=== PATIENT | female | born 1985 | race African-American/Black ===

== ENCOUNTER 2017-05-21 12:11 | Emergency (ER) | payer MEDICAID ==
--- NOTE | 2017-05-21 12:40 | ER Document Report ---
ED Medical Screen (RME) - General Chief Complaint: Vaginal Discharge Stated Complaint: VAGINAL DISCHARGE Time Seen by Provider: 05/21/17 12:34 Notes: 31-year-old patient who is whose last menstrual period was 4 weeks ago and is due now. She reports a one-week history of a clear watery slimy vaginal discharge, a 3 day history of sore throat, and feels dehydrated. I have greeted and performed a rapid initial assessment of this patient. A comprehensive ED assessment and evaluation of the patient, analysis of test results and completion of the medical decision making process will be conducted by additional ED providers. TRAVEL OUTSIDE OF THE [place] IN LAST 30 DAYS: No - Related Data Allergies/Adverse Reactions: No Known Allergies Allergy (Verified 05/21/17 12:16) Past Medical History - General Last Menstrual Period: 1 month ago - Social History Chew tobacco use (# tins/day): No Frequency of alcohol use: None Drug Abuse: None - Past Medical History Cardiac Medical History: Reports: Hx Hypertension Pulmonary Medical History: Reports: Hx Sleep Apnea Neurological Medical History: Reports: Hx Migraine. Denies: Hx Seizures Endocrine Medical History: Denies: Hx Hyperthyroidism, Hx Hypothyroidism Renal/ Medical History: Reports: Hx Ovarian Cysts. Denies: Hx Kidney Stones, Hx Peritoneal Dialysis, Hx Pelvic Inflammatory Disease Malignancy Medical History: Denies: Hx Breast Cancer, Hx Cervical Cancer, Hx Ovarian Cancer GI Medical History: Reports: Hx Gastroesophageal Reflux Disease. Denies: Hx Hiatal Hernia, Hx Ulcer Musculoskeltal Medical History: Denies Hx Fibromyalgia Traumatic Medical History: Denies: Hx Fractures Past Surgical History: Reports: Hx Section - x4 sec, Hx Cholecystectomy. Denies: Hx Hysterectomy, Hx Pacemaker - Immunizations Hx Diphtheria, Pertussis, Tetanus Vaccination: Yes Physical Exam - Vital signs Vitals: Temp Pulse Resp BP Pulse Ox 98.5 F 110 H 18 149/105 H 98 05/21/17 12:16 05/21/17 12:16 05/21/17 12:05/21/17 12:05/21/17 12:16 Course - Vital Signs Vital signs: Temp Pulse Resp BP Pulse Ox 98.5 F 110 H 18 149/105 H 98 05/21/17 12:16 05/21/17 12:16 05/21/17 12:16 05/21/17 12:16 05/21/17 12:16
[2017-05-21 14:32] LABS: CHLAM PCR NOT DETECTED (NOT DETECT)
--- NOTE | 2017-05-21 14:32 | ER Document Report ---
ED General - General Chief Complaint: Vaginal Discharge Stated Complaint: VAGINAL DISCHARGE Time Seen by Provider: 05/21/17 12:34 Notes: 31-year-old patient who is whose last menstrual period was 4 weeks ago and is due now. She reports a one-week history of a clear watery slimy vaginal discharge, a 3 day history of sore throat, and feels dehydrated. pt does admit to unprotected sex 3-4 days ago. no fever, no urinary symptoms, no abdominal pain TRAVEL OUTSIDE OF THE [place] IN LAST 30 DAYS: No - HPI Onset: Last week Onset/Duration: Gradual Quality of pain: Achy Associated symptoms: Allergy/hay fever, Sinus pain/drainage - + post nasal drip. denies: Nonproductive cough, Productive cough, Headache, Hurts to breath , Nausea Exacerbated by: Denies Relieved by: Denies Similar symptoms previously: Yes Recently seen / treated by doctor: No - Related Data Allergies/Adverse Reactions: No Known Allergies Allergy (Verified 05/21/17 12:16) Past Medical History - General Information source: Patient Last Menstrual Period: 1 month ago - Social History Smoking Status: Never Smoker Chew tobacco use (# tins/day): No Frequency of alcohol use: None Drug Abuse: None Lives with: Family Family History: Reviewed & Not Pertinent - Past Medical History Cardiac Medical History: Reports: Hx Hypertension Pulmonary Medical History: Reports: Hx Sleep Apnea Neurological Medical History: Reports: Hx Migraine. Denies: Hx Seizures Endocrine Medical History: Denies: Hx Hyperthyroidism, Hx Hypothyroidism Renal/ Medical History: Reports: Hx Ovarian Cysts. Denies: Hx Kidney Stones, Hx Peritoneal Dialysis, Hx Pelvic Inflammatory Disease Malignancy Medical History: Denies: Hx Breast Cancer, Hx Cervical Cancer, Hx Ovarian Cancer GI Medical History: Reports: Hx Gastroesophageal Reflux Disease. Denies: Hx Hiatal Hernia, Hx Ulcer Musculoskeltal Medical History: Denies Hx Fibromyalgia Traumatic Medical History: Denies: Hx Fractures Past Surgical History: Reports: Hx Section - x4 sec, Hx Cholecystectomy. Denies: Hx Hysterectomy, Hx Pacemaker - Immunizations Hx Diphtheria, Pertussis, Tetanus Vaccination: Yes Review of Systems - Review of Systems Constitutional: No symptoms reported EENT: See HPI Cardiovascular: No symptoms reported Respiratory: No symptoms reported Gastrointestinal: No symptoms reported Genitourinary: See HPI Female Genitourinary: See HPI Musculoskeletal: No symptoms reported Skin: No symptoms reported Hematologic/Lymphatic: No symptoms reported Neurological/Psychological: No symptoms reported Physical Exam - Vital signs Vitals: Temp Pulse Resp BP Pulse Ox 98.5 F 110 H 18 149/105 H 98 05/21/17 12:16 05/21/17 12:16 05/21/17 12:16 05/21/17 12:16 05/21/17 12:16 Interpretation: Normal - General General appearance: Appears well, Alert - HEENT Head: Normocephalic, Atraumatic Eyes: Normal Conjunctiva: Normal Extraocular movements intact: Yes Pupils: PERRL Tympanic membrane: Normal Sinus: Maxillary - mild tenderness Mucous membranes: Moist Pharynx: Post nasal drainage. No: Erythema, Exudate, Retropharyngeal abscess, Tonsillar hypertrophy, Uvular edema, Potential airway comprom. Neck: Normal, Supple - Respiratory Respiratory status: No respiratory distress Chest status: Nontender Breath sounds: Normal Chest palpation: Normal - Cardiovascular Rhythm: Regular Heart sounds: Normal auscultation Murmur: No - Abdominal Inspection: Normal Distension: No distension Bowel sounds: Normal Tenderness: Nontender Organomegaly: No organomegaly - Back Back: Normal, Nontender - Extremities General upper extremity: Normal inspection, Nontender, Normal color, Normal ROM , Normal temperature General lower extremity: Normal inspection, Nontender, Normal color, Normal ROM , Normal temperature, Normal weight bearing. No: Carmine's sign - Neurological Neuro grossly intact: Yes Cognition: Normal Orientation: AAOx4 [place] Coma Scale Eye Opening: Spontaneous Twyla Coma Scale Verbal: Oriented Twyla Coma Scale Motor: Obeys Commands [place] Coma Scale Total: 15 Speech: Normal Motor strength normal: LUE, RUE, LLE, RLE Sensory: Normal - Psychological Associated symptoms: Normal affect, Normal mood - Skin Skin Temperature: Warm Skin Moisture: Dry Skin Color: Normal Course - Re-evaluation Re-evalutation: 05/21/17 14:28 pt has hx/o HTN. has not taken meds today. denies any headache, chest pain or shortness of breath pt's throat appears normal without tonsillar hypertrophy or exudate. no airway compromise or s/s ludwigs or peritonsillary abscess. throat discomfort most likely caused by post nasal drip. - Vital Signs Vital signs: Temp Pulse Resp BP Pulse Ox 98.5 F 110 H 18 149/105 H 98 05/21/17 12:16 05/21/17 12:16 05/21/17 12:16 05/21/17 12:16 05/21/17 12:16 Discharge - Discharge Clinical Impression: Sore throat, Vaginal discharge HTN (hypertension) Qualifiers: Hypertension type: essential hypertension Qualified Code(s): I10 - Essential ( primary) hypertension Condition: Stable Disposition: HOME, SELF-CARE Instructions: Sore Throat ([facility]) Additional Instructions: Your rapid strep is negative for strep today a throat culture is pending. if any further treatment is needed I recommend lozenges and salt water gargles for discomfort your labs for gonorrhea, chlamydia are pending. I will call you with those results and treat accordingly Your blood pressure is elevated today. Please take your medications as prescribed by Dr Bardales Follow up with Dr Bardales for further evaluation and treatment Forms: Elevated Blood Pressure Referrals: SMITA BARDALES MD [Primary Care Provider] - Follow up as needed
[2017-05-21 14:43] VITALS: BP 131/78
== END 2017-05-21 14:43 | disposition home or self-care (01) ==
LOC: ER 12:11
DX: J02.9 Acute pharyngitis, unspecified (principal); N89.8 Other specified noninflammatory disorders of vagina; I10 Essential (primary) hypertension; Z90.49 Acquired absence of other specified parts of digestive tract
CPT/HCPCS: 81025; 87070; 87210; 87491; 87591; 87880; 99283

== ENCOUNTER 2017-09-01 22:39 | Emergency (ER) | payer OTHER, MEDICAID ==
[2017-09-01] MEDS ORDERED: KETOROLAC TROMETHAMINE 10 MG TABLET PO ONE (23:25)
[2017-09-01] MEDS ORDERED: KETOROLAC TROMETHAMINE 10 MG TABLET ONE (23:40)
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
[2017-09-02 01:14] VITALS: BP 111/61
== END 2017-09-02 00:52 | disposition home or self-care (01) ==
LOC: ER 22:39
DX: S16.1XXA Strain of muscle, fascia and tendon at neck level, initial encounter (principal); V49.00XA Driver injured in collision with unspecified motor vehicles in nontraffic accident, initial encounter; R51 Headache; M25.551 Pain in right hip; I10 Essential (primary) hypertension
CPT/HCPCS: 99283; 72125; J3490

== ENCOUNTER → 2017-09-21 | Outpatient (CLI) | payer MEDICAID | LOC: OD 16:18 | PROVIDERS: ATTEND Specialist | DX: G43.909 Migraine, unspecified, not intractable, without status migrainosus (principal); G47.33 Obstructive sleep apnea (adult) (pediatric) | CPT/HCPCS: 36415; 83655 ==

== ENCOUNTER 2017-10-11 08:56 | Emergency (ER) | payer MEDICAID ==
[2017-10-11 10:35] LABS: ABSOLUTE EOSINOPHILS # (AUTO) 0.1 10^3/uL (0.0-0.6); ABSOLUTE MONOCYTES (AUTO) 0.4 10^3/uL (0.1-1.4); ABSOLUTE NEUT (AUTO) 4.2 10^3/uL (1.7-8.2); BASOPHILS % (AUTO) 0.2 % (0-2); HEMATOCRIT 34.5 % (36.0-47.0); HEMOGLOBIN 11.4 g/dL (12.0-15.5); LYMPHOCYTES % (AUTO) 39.4 % (13-45); MEAN CORPUSCULAR HEMOGLOBIN 26.5 pg (27.0-33.4); MEAN CORPUSCULAR HGB CONC 32.9 g/dL (32.0-36.0); MEAN CORPUSCULAR VOLUME 81 fl (80-97); MONOCYTES % (AUTO) 4.8 % (3-13); PLATELET COUNT 334 10^3/uL (150-450); RED BLOOD COUNT 4.28 10^6/uL (3.72-5.28); SEGMENTED NEUTROPHILS % (AUTO) 54.6 % (42-78); TOTAL CELLS COUNTED % (AUTO) 100 %; WHITE BLOOD COUNT 7.6 10^3/uL (4.0-10.5)
[2017-10-11 10:55] LABS: ANION GAP 10 (5-19); BLOOD UREA NITROGEN 6 mg/dL (7-20); CALCIUM 9.6 mg/dL (8.4-10.2); CARBON DIOXIDE 23 mmol/L (22-30); CHLORIDE 109 mmol/L (98-107); GLUCOSE 119 mg/dL (75-110); POTASSIUM 4.5 mmol/L (3.6-5.0); SODIUM 142.2 mmol/L (137-145)
[2017-10-11] MEDS ORDERED: CEFTRIAXONE INJ 250 MG VIAL IM ONE (11:08)
[2017-10-11] MEDS ORDERED: AZITHROMYCIN 1 GM SUSP PACKET PO ONE (11:08)
[2017-10-11] MEDS ORDERED: LIDOCAINE 1% INJ-PF (10 MG/ML) 30 ML SDV INFIL ONE (11:08)
[2017-10-11] MEDS ORDERED: METRONIDAZOLE 500 MG TABLET PO ONE (11:08)
[2017-10-11 11:13] LABS: APPEARANCE,URINE CLOUDY; BILIRUBIN,URINE NEGATIVE (NEGATIVE); GLUCOSE, URINE NEGATIVE (NEGATIVE); KETONES,URINE NEGATIVE (NEGATIVE); LEUKOCYTE ESTERASE,URINE NEGATIVE (NEGATIVE); NITRITE,URINE NEGATIVE (NEGATIVE); PROTEIN,URINE 100 mg/dL (NEGATIVE); URINE SPECIFIC GRAVITY 1.026; UROBILINOGEN,URINE NEGATIVE mg/dL (<2.0)
[2017-10-11 11:14] LABS: COLOR,URINE AMBER
--- NOTE | 2017-10-11 12:20 | ER Document Report ---
ED General - General Chief Complaint: Vaginal Bleeding Stated Complaint: VAGINAL BLEEDING Time Seen by Provider: 10/11/17 09:57 TRAVEL OUTSIDE OF THE [place] IN LAST 30 DAYS: No - HPI Patient complains to provider of: Vaginal bleeding vaginal itching Notes: Patient coming in for vaginal bleeding vaginal itching. Patient took Plan B approximately 2-3 days ago now skin having vaginal itching. Patient was recently seen by a provider and was given Diflucan which she took yesterday for vaginal itching for a yeast infection. Patient is concerned she may have something else going on. Patient denies any fevers chills nausea vomiting diarrhea abdominal pain. Patient resting comfortably upon my evaluation. - Related Data Allergies/Adverse Reactions: No Known Allergies Allergy (Verified 10/11/17 08:59) Past Medical History - Social History Smoking Status: Never Smoker Frequency of alcohol use: None Drug Abuse: None Family History: Reviewed & Not Pertinent Patient has suicidal ideation: No Patient has homicidal ideation: No - Past Medical History Cardiac Medical History: Reports: Hx Hypertension Pulmonary Medical History: Reports: Hx Sleep Apnea Neurological Medical History: Reports: Hx Migraine. Denies: Hx Seizures Endocrine Medical History: Denies: Hx Hyperthyroidism, Hx Hypothyroidism Renal/ Medical History: Reports: Hx Ovarian Cysts. Denies: Hx Kidney Stones, Hx Peritoneal Dialysis, Hx Pelvic Inflammatory Disease Malignancy Medical History: Denies: Hx Breast Cancer, Hx Cervical Cancer, Hx Ovarian Cancer GI Medical History: Reports: Hx Gastroesophageal Reflux Disease. Denies: Hx Hiatal Hernia, Hx Ulcer Musculoskeltal Medical History: Denies Hx Fibromyalgia Traumatic Medical History: Denies: Hx Fractures Past Surgical History: Reports: Hx Section - x4 sec, Hx Cholecystectomy. Denies: Hx Hysterectomy, Hx Pacemaker - Immunizations Hx Diphtheria, Pertussis, Tetanus Vaccination: Yes Review of Systems - Review of Systems Constitutional: No symptoms reported EENT: No symptoms reported Cardiovascular: No symptoms reported Respiratory: No symptoms reported Gastrointestinal: No symptoms reported Genitourinary: No symptoms reported Female Genitourinary: Vaginal bleeding Musculoskeletal: No symptoms reported Skin: No symptoms reported Hematologic/Lymphatic: No symptoms reported Neurological/Psychological: No symptoms reported -: Yes All other systems reviewed and negative Physical Exam - Vital signs Vitals: Temp Pulse Resp BP Pulse Ox 98.9 F 82 20 147/87 H 100 10/11/17 09:16 10/11/17 09:16 10/11/17 09:16 10/11/17 09:16 10/11/17 09:16 Interpretation: Normal - General General appearance: Appears well, Alert - HEENT Head: Normocephalic, Atraumatic Eyes: Normal Pupils: PERRL - Respiratory Respiratory status: No respiratory distress Chest status: Nontender Breath sounds: Normal Chest palpation: Normal - Cardiovascular Rhythm: Regular Heart sounds: Normal auscultation Murmur: No - Abdominal Inspection: Normal Distension: No distension Bowel sounds: Normal Tenderness: Nontender Organomegaly: No organomegaly - Back Back: Normal, Nontender - Extremities General upper extremity: Normal inspection, Nontender, Normal color, Normal ROM , Normal temperature General lower extremity: Normal inspection, Nontender, Normal color, Normal ROM , Normal temperature, Normal weight bearing. No: Carmine's sign - Neurological Neuro grossly intact: Yes Cognition: Normal Orientation: AAOx4 Twyla Coma Scale Eye Opening: Spontaneous [place] Coma Scale Verbal: Oriented Twyla Coma Scale Motor: Obeys Commands Twyla Coma Scale Total: 15 Speech: Normal Motor strength normal: LUE, RUE, LLE, RLE Sensory: Normal - Psychological Associated symptoms: Normal affect, Normal mood - Skin Skin Temperature: Warm Skin Moisture: Dry Skin Color: Normal Course - Re-evaluation Re-evalutation: 10/11/17 16:02 Patient patient did offer treatment for gonorrhea chlamydia Trichomonas and BV in the form of Rocephin and Zithromax and Flagyl. Patient did agree to this. Patient was encouraged follow-up with her primary care provider return to the ER symptoms worsen - Vital Signs Vital signs: Temp Pulse Resp BP Pulse Ox 98.8 F 71 14 113/57 L 100 10/11/17 12:39 10/11/17 12:39 10/11/17 12:39 10/11/17 12:39 10/11/17 12:39 - Laboratory Result Diagrams: 10/11/17 10:13 10/11/17 10:13 Laboratory results interpreted by me: 10/11/17 10/11/17 10/11/17 09:49 10:13 10:13 Hgb 11.4 L Hct 34.5 L MCH 26.5 L RDW 16.0 H Chloride 109 H BUN 6 L Glucose 119 H Urine Protein 100 H Urine Blood LARGE H Urine Ascorbic Acid 40 H Discharge - Discharge Clinical Impression: Vaginal bleeding Disposition: HOME, SELF-CARE Instructions: Vaginal Bleeding ([facility]) Additional Instructions: Your laboratory studies not reveal any critical pathology today. More likely her vaginal bleeding is due to taking the Plan B. He had declined a pelvic exam today. The medications that she received here Rocephin and Zithromax Flagyl will treat gonorrhea chlamydia Trichomonas and bacterial vaginosis. I highly recommend following up with your primary care physician return to ER symptoms worsen. Forms: Return to Work
[2017-10-11 12:41] VITALS: BP 113/57
== END 2017-10-11 12:41 | disposition home or self-care (01) ==
LOC: ER 08:56
DX: N93.9 Abnormal uterine and vaginal bleeding, unspecified (principal); Z79.899 Other long term (current) drug therapy
CPT/HCPCS: 99283; 96372; 36415; 84702; 85025; 80048; 81001; J3490 ×2; Q0144; J0696

== ENCOUNTER 2017-12-31 21:09 | Emergency (ER) | payer MEDICAID ==
--- NOTE | 2017-12-31 22:29 | ER Document Report ---
ED General - General Chief Complaint: Urinary Frequency Stated Complaint: URINARY FREQUENCY Time Seen by Provider: 12/31/17 22:15 Notes: Patient presents with 3 days of urinary frequency and bilateral lower back pain. Denies any recent nausea vomiting diarrhea. She states that she is concerned she may also be . She states her last menstrual period was the eighth of this month. She denies any dysuria or foul-smelling urine or vaginal discharge. She denies any cough or congestion. She states that she thinks she was running a fever prior to coming to the emergency department but she is afebrile in the emergency department. TRAVEL OUTSIDE OF THE [place] IN LAST 30 DAYS: No - Related Data Allergies/Adverse Reactions: No Known Allergies Allergy (Verified 12/31/17 21:28) Past Medical History - Social History Smoking Status: Unknown if Ever Smoked Family History: Reviewed & Not Pertinent Patient has suicidal ideation: No Patient has homicidal ideation: No - Past Medical History Cardiac Medical History: Reports: Hx Hypertension Pulmonary Medical History: Reports: Hx Sleep Apnea Neurological Medical History: Reports: Hx Migraine. Denies: Hx Seizures Endocrine Medical History: Denies: Hx Hyperthyroidism, Hx Hypothyroidism Renal/ Medical History: Reports: Hx Ovarian Cysts. Denies: Hx Kidney Stones, Hx Peritoneal Dialysis, Hx Pelvic Inflammatory Disease Malignancy Medical History: Denies: Hx Breast Cancer, Hx Cervical Cancer, Hx Ovarian Cancer GI Medical History: Reports: Hx Gastroesophageal Reflux Disease. Denies: Hx Hiatal Hernia, Hx Ulcer Musculoskeltal Medical History: Denies Hx Fibromyalgia Traumatic Medical History: Denies: Hx Fractures Past Surgical History: Reports: Hx Section - x4 sec, Hx Cholecystectomy. Denies: Hx Hysterectomy, Hx Pacemaker - Immunizations Hx Diphtheria, Pertussis, Tetanus Vaccination: Yes Review of Systems - Review of Systems Constitutional: No symptoms reported EENT: No symptoms reported Cardiovascular: No symptoms reported Respiratory: No symptoms reported Gastrointestinal: No symptoms reported Genitourinary: No symptoms reported, See HPI, Flank pain, Urgency Female Genitourinary: No symptoms reported Musculoskeletal: No symptoms reported Skin: No symptoms reported Hematologic/Lymphatic: No symptoms reported Neurological/Psychological: No symptoms reported Physical Exam - Vital signs Vitals: Temp Pulse Resp BP Pulse Ox 98.9 F 91 16 136/80 H 100 12/31/17 21:53 12/31/17 21:53 12/31/17 21:53 12/31/17 21:53 12/31/17 21:53 - General General appearance: Appears well, Alert - HEENT Head: Normocephalic, Atraumatic - Respiratory Respiratory status: No respiratory distress - Cardiovascular Rhythm: Regular Heart sounds: Normal auscultation Murmur: No - Abdominal Inspection: Normal Distension: No distension - Back Back: Normal, Nontender. No: CVA tenderness - Neurological Cognition: Normal - Psychological Associated symptoms: Normal affect Course - Re-evaluation Re-evalutation: 12/31/17 23:30 Patient's urine shows no signs of infection and test is negative. Patient afebrile with normal vitals in the emergency department. Discussed findings with patient. Advised to stay well-hydrated as this could cause her symptoms. Discussed if she develops a fever greater than 100.5 for more than 4 hours with worsening pain or symptoms to return for reevaluation. - Vital Signs Vital signs: Temp Pulse Resp BP Pulse Ox 98.7 F 74 17 134/76 H 100 12/31/17 23:51 12/31/17 23:51 12/31/17 23:51 12/31/17 23:51 12/31/17 23:51 Discharge - Discharge Clinical Impression: Urinary urgency Condition: Good Disposition: HOME, SELF-CARE Additional Instructions: Please take medications as prescribed and please try to drink 5-6 glasses of water daily. Please seek medical attention if symptoms are worsening for any other concerns. Prescriptions: Phenazopyridine HCl [Pyridium 200 mg Tablet] 200 mg PO TID 2 Days #6 tablet Scribe Attestation: 01/08/18 07:41 I personally performed the services described in the documentation, reviewed and edited the documentation which was dictated to the scribe in my presence, and it accurately records my words and actions.
[2017-12-31 22:41] LABS: APPEARANCE,URINE SLIGHTLY-CLOUDY; BILIRUBIN,URINE NEGATIVE (NEGATIVE); COLOR,URINE YELLOW; GLUCOSE, URINE NEGATIVE (NEGATIVE); KETONES,URINE NEGATIVE (NEGATIVE); LEUKOCYTE ESTERASE,URINE NEGATIVE (NEGATIVE); NITRITE,URINE NEGATIVE (NEGATIVE); PROTEIN,URINE NEGATIVE (NEGATIVE); URINE SPECIFIC GRAVITY 1.018; UROBILINOGEN,URINE NEGATIVE mg/dL (<2.0)
[2017-12-31 23:52] VITALS: BP 134/76
== END 2017-12-31 23:52 | disposition home or self-care (01) ==
LOC: ER 21:09
DX: R39.15 Urgency of urination (principal); R35.0 Frequency of micturition; M54.5 Low back pain; I10 Essential (primary) hypertension; Z32.02 Encounter for pregnancy test, result negative
CPT/HCPCS: 81001; 81025; 99283

== ENCOUNTER 2018-03-15 11:03 | Emergency (ER) | payer MEDICAID ==
[2018-03-15 11:10] VITALS: BP 151/89
--- NOTE | 2018-03-15 12:41 | RADIOLOGY REPORT (SQ) ---
EXAM DESCRIPTION: KNEE LEFT 4 VIEW COMPLETED DATE/TIME: 03/15/2018 12:31 pm REASON FOR STUDY: swelling, worsening, pain COMPARISON: None. NUMBER OF VIEWS: Four views. TECHNIQUE: AP, lateral, and both oblique radiographic images acquired of the left knee. LIMITATIONS: None. FINDINGS: MINERALIZATION: Normal. BONES: No acute fracture or dislocation. No worrisome bone lesions. No significant osteophytes. JOINT: Probable small effusion OTHER: No other significant finding. IMPRESSION: No acute or significant bony pathology. Possible small joint effusion. TECHNICAL DOCUMENTATION: JOB ID: [id number] [employer]- All Rights Reserved Reading location - IP/workstation name: [email or web address]
--- NOTE | 2018-03-15 13:01 | ER Document Report ---
ED Extremity Problem, Lower - General Chief Complaint: Knee Pain Stated Complaint: KNEE PAIN Time Seen by Provider: 03/15/18 11:52 Mode of Arrival: Ambulatory Information source: Patient Notes: Patient is a 32-year-old female who presents to the ER today for left knee pain and swelling after feeling a sharp pop 2 weeks ago going up some stairs. Patient states that since that time she has had increased pain, swelling and weakness to the left knee feeling like it was going to give out on her multiple times. Patient states that is much worse try to go up and down stairs or bend at all. She denies any previous injury to that knee. She has not tried anything except for ice and elevation which have not really been helping. She denies any numbness or tingling. TRAVEL OUTSIDE OF THE [place] IN LAST 30 DAYS: No - Related Data Allergies/Adverse Reactions: No Known Allergies Allergy (Verified 12/31/17 21:28) Past Medical History - General Information source: Patient - Social History Smoking Status: Never Smoker Frequency of alcohol use: None Drug Abuse: None Family History: Reviewed & Not Pertinent Patient has suicidal ideation: No Patient has homicidal ideation: No - Past Medical History Cardiac Medical History: Reports: Hx Hypertension Pulmonary Medical History: Reports: Hx Sleep Apnea Neurological Medical History: Reports: Hx Migraine. Denies: Hx Seizures Endocrine Medical History: Denies: Hx Hyperthyroidism, Hx Hypothyroidism Renal/ Medical History: Reports: Hx Ovarian Cysts. Denies: Hx Kidney Stones, Hx Peritoneal Dialysis, Hx Pelvic Inflammatory Disease Malignancy Medical History: Denies: Hx Breast Cancer, Hx Cervical Cancer, Hx Ovarian Cancer GI Medical History: Reports: Hx Gastroesophageal Reflux Disease. Denies: Hx Hiatal Hernia, Hx Ulcer Musculoskeltal Medical History: Denies Hx Fibromyalgia Traumatic Medical History: Denies: Hx Fractures Past Surgical History: Reports: Hx Section - x4 sec, Hx Cholecystectomy. Denies: Hx Hysterectomy, Hx Pacemaker - Immunizations Hx Diphtheria, Pertussis, Tetanus Vaccination: Yes Review of Systems - Review of Systems Constitutional: No symptoms reported EENT: No symptoms reported Cardiovascular: No symptoms reported Respiratory: No symptoms reported Gastrointestinal: No symptoms reported Genitourinary: No symptoms reported Female Genitourinary: No symptoms reported Musculoskeletal: See HPI Skin: No symptoms reported Hematologic/Lymphatic: No symptoms reported Neurological/Psychological: No symptoms reported Physical Exam - Vital signs Vitals: Temp Pulse Resp BP Pulse Ox 98.7 F 93 16 151/89 H 97 03/15/18 11:09 03/15/18 11:09 03/15/18 11:03/15/18 11:09 03/15/18 11:09 - Notes Notes: PHYSICAL EXAMINATION: GENERAL: Uncomfortable appearing, but in no acute distress. HEAD: Atraumatic, normocephalic. EYES: Pupils equal round and reactive to light, extraocular movements intact, sclera anicteric, conjunctiva are normal. NECK: Normal range of motion, supple without lymphadenopathy LUNGS: CTAB and equal. No wheezes rales or rhonchi. HEART: Regular rate and rhythm without murmurs EXTREMITIES: Tender to anterior, medial left knee, limited range of motion with flexion of the left knee secondary to pain, pain with varus and valgus stressing , worse with varus, patient would not tolerate anterior posterior drawer testing , no pitting edema. No cyanosis. NEUROLOGICAL: Cranial nerves grossly intact. Normal sensory/motor exams. PSYCH: Normal mood, normal affect. SKIN: Warm, Dry, normal turgor, no rashes or lesions noted Course - Re-evaluation Re-evalutation: 03/15/18 18:31 X-ray showed small joint effusion, no other pathology. Patient placed in a knee immobilizer brace and given crutches, orthopedic surgeon follow-up information. Will be sent home with anti-inflammatory pain medication. Patient understands that there is a probable internal knee injury at this time. Specialize work note was also given. - Vital Signs Vital signs: Temp Pulse Resp BP Pulse Ox 98.7 F 93 16 151/89 H 97 03/15/18 11:09 03/15/18 11:09 03/15/18 11:03/15/18 11:09 03/15/18 11:09 Discharge - Discharge Clinical Impression: Knee effusion, left Knee injury Qualifiers: Encounter type: initial encounter Laterality: left Qualified Code(s): S89.92XA - Unspecified injury of left lower leg, initial encounter Condition: Stable Disposition: HOME, SELF-CARE Instructions: Ice & Elevation ([facility]), Knee Immobilizing Splint ([facility]) Additional Instructions: Return immediately for any new or worsening symptoms. Follow up with orthopedic surgeon, call tomorrow to make followup appointment. Prescriptions: Ibuprofen [Motrin 800 mg Tablet] 800 mg PO Q8H PRN #30 tab PRN Reason: Oxycodone HCl/Acetaminophen [Percocet 5-325 mg Tablet] 1 - 2 tab PO Q4H PRN #15 tablet PRN Reason: Forms: Special Work Note Referrals: SMITA BARDALES MD [Primary Care Provider] - Follow up as needed CRISTINE OBRIEN MD [ACTIVE STAFF] - Follow up as needed
== END 2018-03-15 13:31 | disposition home or self-care (01) ==
LOC: ER 11:03
DX: S89.92XA Unspecified injury of left lower leg, initial encounter (principal); M25.462 Effusion, left knee; M25.562 Pain in left knee; M79.89 Other specified soft tissue disorders; M62.81 Muscle weakness (generalized); X58.XXXA Exposure to other specified factors, initial encounter; I10 Essential (primary) hypertension
CPT/HCPCS: 99283; 73564; L1830

== ENCOUNTER 2018-07-18 11:32 | Emergency (ER) | payer MEDICAID ==
[2018-07-18] MEDS ORDERED: ONDANSETRON 4 MG TAB.RAPDIS PO ONE (12:00)
[2018-07-18] MEDS ORDERED: ACETAMINOPHEN 325 MG TABLET PO ONE (12:02)
--- NOTE | 2018-07-18 12:04 | ER Document Report ---
ED GI/ - General Chief Complaint: Abdominal Pain Stated Complaint: HEADACHE,NASUEA Time Seen by Provider: 07/18/18 12:00 Mode of Arrival: Ambulatory Information source: Patient Notes: Chief complaint: abdominal pain: History of complain:( obtained from----patient) 33 years old female history of being A, 8 weeks presents today with abdominal cramps particularly lower abdomen associated with slight nausea. She . Denies any dysuria frequency urgency denies any fever chills or other constitutional symptoms. Denies any vaginal discharge Onset: Gradual Duration: Couple of days Severity: Mild to moderate Quality: Crampy Context: Exacerbating factor and relieving factors: REVIEW OF SYSTEMS: CONSTITUTIONAL : Denies fever, chills, or sweats. Denies recent illness. EENT: Denies eye, ear, throat, or mouth pain or symptoms. Denies nasal or sinus congestion or discharge. Denies throat, tongue, or mouth swelling or difficulty swallowing. CARDIOVASCULAR: Denies chest pain. Denies palpitations or racing or irregular heart beat. Denies ankle edema. RESPIRATORY: Denies cough, cold, or chest congestion. Denies shortness of breath, difficulty breathing, or wheezing. GASTROINTESTINAL: Denies distention. Denies nausea, vomiting, or diarrhea. Denies blood in vomitus, stools, or per rectum. Denies black, tarry stools. Denies constipation. GENITOURINARY: Denies difficulty urinating, painful urination, burning, frequency, blood in urine, or discharge. FEMALE GENITOURINARY: Denies vaginal bleeding, heavy or abnormal periods, irregular periods. Denies vaginal discharge or odor. MUSCULOSKELETAL: Denies back or neck pain or stiffness. Denies joint pain or swelling. SKIN: Denies rash, lesions or sores. HEMATOLOGIC : Denies easy bruising or bleeding. LYMPHATIC: Denies swollen, enlarged glands. NEUROLOGICAL: Denies confusion or altered mental status. Denies passing out or loss of consciousness. Denies dizziness or lightheadedness. Denies headache. Denies weakness or paralysis or loss of use of either side. Denies problems with gait or speech. Denies sensory loss, numbness, or tingling. Denies seizures. PSYCHIATRIC: Denies anxiety or stress. Denies depression, suicidal ideation, or homicidal ideation. ALL OTHER SYSTEMS REVIEWED AND NEGATIVE. PHYSICAL EXAMINATION: GENERAL: Well-appearing, well-nourished and in no acute distress. HEAD: Atraumatic, normocephalic. EYES: Pupils equal round and reactive to light, extraocular movements intact, conjunctiva are normal. ENT: Nares patent, oropharynx clear without exudates. Moist mucous membranes. NECK: Normal range of motion, supple without lymphadenopathy LUNGS: Breath sounds clear to auscultation bilaterally and equal. No wheezes rales or rhonchi. HEART: Regular rate and rhythm without murmurs ABDOMEN: Soft, nontender, nondistended abdomen. No guarding, no rebound. No masses appreciated. Female : deferred Musculoskeletal: Normal range of motion, no pitting or edema. No cyanosis. NEUROLOGICAL: Cranial nerves grossly intact. Normal speech, normal gait. Normal sensory, motor exams PSYCH: Normal mood, normal affect. SKIN: Warm, Dry, normal turgor, no rashes or lesions noted. Dictation was performed using [employer] voice recognition software TRAVEL OUTSIDE OF THE [place] IN LAST 30 DAYS: No - HPI Notes: 07/18/18 12:03 Dictated - Related Data Allergies/Adverse Reactions: No Known Allergies Allergy (Verified 07/18/18 11:33) Past Medical History - Social History Smoking Status: Never Smoker Cigarette use (# per day): No Frequency of alcohol use: None Drug Abuse: None Lives with: Family Family History: Reviewed & Not Pertinent - Past Medical History Cardiac Medical History: Reports: Hx Hypertension Pulmonary Medical History: Reports: Hx Sleep Apnea Neurological Medical History: Reports: Hx Migraine. Denies: Hx Seizures Endocrine Medical History: Denies: Hx Hyperthyroidism, Hx Hypothyroidism Renal/ Medical History: Reports: Hx Ovarian Cysts. Denies: Hx Kidney Stones, Hx Peritoneal Dialysis, Hx Pelvic Inflammatory Disease Malignancy Medical History: Denies: Hx Breast Cancer, Hx Cervical Cancer, Hx Ovarian Cancer GI Medical History: Reports: Hx Gastroesophageal Reflux Disease. Denies: Hx Hiatal Hernia, Hx Ulcer Musculoskeletal Medical History: Denies Hx Fibromyalgia Traumatic Medical History: Denies: Hx Fractures Past Surgical History: Reports: Hx Section - x4 sec, Hx Cholecystectomy. Denies: Hx Hysterectomy, Hx Pacemaker - Immunizations Hx Diphtheria, Pertussis, Tetanus Vaccination: Yes Review of Systems - Review of Systems Notes: Dictated Physical Exam - Vital signs Vitals: Temp Pulse Resp BP Pulse Ox 99.0 F 86 20 142/73 H 99 11/07/18 11:39 07/18/18 11:39 07/18/18 11:39 07/18/18 11:39 07/18/18 11:39 - Notes Notes: Dictated Course - Vital Signs Vital signs: Temp Pulse Resp BP Pulse Ox 99.0 F 86 20 142/73 H 99 07/18/18 11:39 07/18/18 11:39 07/18/18 11:39 07/18/18 11:39 07/18/18 11:39 Discharge - Discharge Referrals: SMITA BARDALES MD [Primary Care Provider] - Follow up as needed
[2018-07-18 12:24] LABS: ABSOLUTE LYMPHOCYTES (AUTO) 3.2 10^3/uL (0.5-4.7); ABSOLUTE MONOCYTES (AUTO) 0.4 10^3/uL (0.1-1.4); ABSOLUTE NEUT (AUTO) 4.8 10^3/uL (1.7-8.2); BASOPHILS % (AUTO) 0.3 % (0-2); EOSINOPHILS % (AUTO) 0.5 % (0-6); HEMATOCRIT 36.4 % (36.0-47.0); HEMOGLOBIN 12.4 g/dL (12.0-15.5); LYMPHOCYTES % (AUTO) 37.7 % (13-45); MEAN CORPUSCULAR HEMOGLOBIN 27.7 pg (27.0-33.4); MEAN CORPUSCULAR VOLUME 81 fl (80-97); MONOCYTES % (AUTO) 4.7 % (3-13); PLATELET COUNT 350 10^3/uL (150-450); RED BLOOD COUNT 4.47 10^6/uL (3.72-5.28); RED CELL DISTRIBUTION WIDTH 14.8 % (11.5-14.0); SEGMENTED NEUTROPHILS % (AUTO) 56.8 % (42-78); TOTAL CELLS COUNTED % (AUTO) 100 %; WHITE BLOOD COUNT 8.5 10^3/uL (4.0-10.5)
[2018-07-18 12:29] LABS: APPEARANCE,URINE SLIGHTLY-CLOUDY; BILIRUBIN,URINE NEGATIVE (NEGATIVE); COLOR,URINE YELLOW; GLUCOSE, URINE NEGATIVE (NEGATIVE); KETONES,URINE NEGATIVE (NEGATIVE); LEUKOCYTE ESTERASE,URINE TRACE (NEGATIVE); NITRITE,URINE NEGATIVE (NEGATIVE); PROTEIN,URINE NEGATIVE (NEGATIVE); URINE SPECIFIC GRAVITY 1.019; UROBILINOGEN,URINE NEGATIVE mg/dL (<2.0)
[2018-07-18 12:40] LABS: ALANINE AMINOTRANSFERASE 12 U/L (9-52); ALBUMIN 4.1 g/dL (3.5-5.0); ALKALINE PHOSPHATASE 59 U/L (38-126); ANION GAP 12 (5-19); ASPARTATE AMINO TRANSFERASE 15 U/L (14-36); BILIRUBIN,DIRECT 0.2 mg/dL (0.0-0.4); BILIRUBIN,TOTAL 0.3 mg/dL (0.2-1.3); BLOOD UREA NITROGEN 10 mg/dL (7-20); CARBON DIOXIDE 25 mmol/L (22-30); CHLORIDE 105 mmol/L (98-107); GLUCOSE 102 mg/dL (75-110); POTASSIUM 4.4 mmol/L (3.6-5.0); SODIUM 142.2 mmol/L (137-145); TOTAL PROTEIN 7.2 g/dL (6.3-8.2)
--- NOTE | 2018-07-18 13:42 | ER Document Report ---
ED General - General Chief Complaint: Abdominal Pain Stated Complaint: HEADACHE,NASUEA Time Seen by Provider: 07/18/18 12:00 Mode of Arrival: Ambulatory TRAVEL OUTSIDE OF THE [place] IN LAST 30 DAYS: No - HPI Onset/Duration: Sudden, Intermittent Quality of pain: Cramping Severity: Moderate Associated symptoms: None Exacerbated by: Denies Relieved by: Denies Notes: Patient is a 33-year-old female that presents to the emergency department for chief complaint of lower abdominal cramping. Patient is with 3 miscarriages. LMP was 06/18/18. She reports lower abdominal cramping for the last 2-3 days. Cramping is intermittent and sharp. She denies radiation of her pain. There are no aggravating or relieving factors to her pain. She denies any vaginal bleeding or discharge. She denies any nausea, vomiting, or diarrhea. Patient is not having any dysuria or hematuria. She states she has had 4 C-sections in the past and has been told she has high risk with her pregnancies. She has not established care yet for this but will be seeing Dr. Tatum. Past Medical History: Spina bifida Past Surgical History: x4, cholecystectomy Social History: Denies drugs alcohol and tobacco Family History: Reviewed and noncontributory for presenting illness Allergies: Reviewed, see documented allergy list. REVIEW OF SYSTEMS: CONSTITUTIONAL : No fever No chills No diaphoresis No recent illness EENT: No vision changes No congestion No sore throat CARDIOVASCULAR: No chest pain No palpitations RESPIRATORY: No shortness of breath No cough No difficulty breathing GASTROINTESTINAL: abdominal pain No nausea No vomiting No diarrhea GENITOURINARY: No dysuria No hematuria No difficulty urinating MUSCULOSKELETAL: No back pain No leg pain No arm pain SKIN: No rashes No lesions LYMPHATIC: No swollen, enlarged glands. NEUROLOGICAL: No lightheadedness No headache No weakness No paresthesias PSYCHIATRIC: No anxiety No depression PHYSICAL EXAMINATION: Vital signs reviewed, nursing noted reviewed. GENERAL: Well-appearing, well-nourished and in no acute distress. HEAD: Atraumatic, normocephalic. EYES: Eyes appear normal, extraocular movements intact, sclera anicteric, conjunctiva are normal. ENT: nares patent, oropharynx clear without exudates. Moist mucous membranes. NECK: Normal range of motion, supple without lymphadenopathy LUNGS: Breath sounds clear to auscultation bilaterally and equal. No wheezes rales or rhonchi. HEART: Regular rate and rhythm without murmurs ABDOMEN: Soft, nontender, normoactive bowel sounds. No rebound, guarding, or rigidity. No masses appreciated. EXTREMITIES: Nontender, good range of motion, no pitting or edema. NEUROLOGICAL: No focal neurological deficits. Moves all extremities spontaneously Motor and sensory grossly intact on exam. PSYCH: Normal mood, normal affect. SKIN: Warm, Dry, normal turgor, no rashes or lesions noted on exposed skin - Related Data Allergies/Adverse Reactions: No Known Allergies Allergy (Verified 07/18/18 11:33) Past Medical History - General Information source: Patient - Social History Smoking Status: Never Smoker Cigarette use (# per day): No Chew tobacco use (# tins/day): No Frequency of alcohol use: None Drug Abuse: None Lives with: Family Family History: Reviewed & Not Pertinent Patient has suicidal ideation: No Patient has homicidal ideation: No - Past Medical History Cardiac Medical History: Reports: Hx Hypertension Pulmonary Medical History: Reports: Hx Sleep Apnea Neurological Medical History: Reports: Hx Migraine. Denies: Hx Seizures Endocrine Medical History: Denies: Hx Hyperthyroidism, Hx Hypothyroidism Renal/ Medical History: Reports: Hx Ovarian Cysts. Denies: Hx Kidney Stones, Hx Peritoneal Dialysis, Hx Pelvic Inflammatory Disease Malignancy Medical History: Denies: Hx Breast Cancer, Hx Cervical Cancer, Hx Ovarian Cancer GI Medical History: Reports: Hx Gastroesophageal Reflux Disease. Denies: Hx Hiatal Hernia, Hx Ulcer Musculoskeletal Medical History: Denies Hx Fibromyalgia Traumatic Medical History: Denies: Hx Fractures Past Surgical History: Reports: Hx Section - x4 sec, Hx Cholecystectomy. Denies: Hx Hysterectomy, Hx Pacemaker - Immunizations Hx Diphtheria, Pertussis, Tetanus Vaccination: Yes Physical Exam - Vital signs Vitals: Temp Pulse Resp BP Pulse Ox 99.0 F 86 20 142/73 H 99 07/18/18 11:39 07/18/18 11:39 07/18/18 11:39 07/18/18 11:39 07/18/18 11:39 - Notes Notes: Dictated Course - Re-evaluation Re-evalutation: 07/18/18 13:39 Vitals reviewed. Nursing notes reviewed. Patient's lab work is unremarkable. Her quant level is only 56. Ultrasound was obtained however there was no visualization of early gestation. Patient's quant level is not high enough to expect to be able to fully visualize gestation. I did explain that with abdominal pain in early we are unable to rule out ectopic . She will need to have repeat ultrasound and repeat beta hCG quant done in the next week by her GLAZIER ARTIST. She states she will call today and arrange for close follow-up. She will return to the emergency room for any other symptoms including worsening pain or bleeding. The remainder of her workup is unremarkable. There is no urinary tract infection. She has no electrolyte derangements. Laboratory 07/18/18 07/18/18 07/18/18 12:10 12:13 12:13 WBC 8.5 RBC 4.47 Hgb 12.4 Hct 36.4 MCV 81 MCH 27.7 MCHC 34.0 RDW 14.8 H Plt Count 350 Seg Neutrophils % 56.8 Lymphocytes % 37.7 Monocytes % 4.7 Eosinophils % 0.5 Basophils % 0.3 Absolute Neutrophils 4.8 Absolute Lymphocytes 3.2 Absolute Monocytes 0.4 Absolute Eosinophils 0.0 Absolute Basophils 0.0 Sodium 142.2 Potassium 4.4 Chloride 105 Carbon Dioxide 25 Anion Gap 12 BUN 10 Creatinine 0.78 Est GFR ( Amer) > 60 Est GFR (Non-Af Amer) > 60 Glucose 102 Calcium 9.0 Total Bilirubin 0.3 Direct Bilirubin 0.2 Neonat Total Bilirubin Not Reportable Neonat Direct Bilirubin Not Reportable Neonat Indirect Bili Not Reportable AST 15 ALT 12 Alkaline Phosphatase 59 Total Protein 7.2 Albumin 4.1 Beta HCG, Quant 56.63 H Total Beta HCG POSITIVE Urine Color YELLOW Urine Appearance SLIGHTLY-CLOUDY Urine pH 5.0 Ur Specific [place] 1.019 Urine Protein NEGATIVE Urine Glucose (UA) NEGATIVE Urine Ketones NEGATIVE Urine Blood NEGATIVE Urine Nitrite NEGATIVE Urine Bilirubin NEGATIVE Urine Urobilinogen NEGATIVE Ur Leukocyte Esterase TRACE H Urine WBC (Auto) 2 Urine RBC (Auto) 1 Squamous Epi Cells Auto 6 Urine Mucus (Auto) RARE Urine Ascorbic Acid NEGATIVE Patient in agreement with this plan and stable at discharge. - Vital Signs Vital signs: Temp Pulse Resp BP Pulse Ox 99.0 F 86 20 142/73 H 99 07/18/18 11:39 07/18/18 11:39 07/18/18 11:39 07/18/18 11:39 07/18/18 11:39 - Laboratory Result Diagrams: 07/18/18 12:13 07/18/18 12:13 Laboratory results interpreted by me: 07/18/18 07/18/18 07/18/18 12:10 12:13 12:13 RDW 14.8 H Beta HCG, Quant 56.63 H Ur Leukocyte Esterase TRACE H - Diagnostic Test Radiology reviewed: Image reviewed, Reports reviewed Discharge - Discharge Clinical Impression: Pelvic pain affecting Qualifiers: Trimester: first trimester Qualified Code(s): O26.891 - Other specified related conditions, first trimester; R10.2 - Pelvic and perineal pain ; R10.2 - Pelvic and perineal pain Condition: Stable Disposition: HOME, SELF-CARE Instructions: Ectopic Precaution ([facility]) Additional Instructions: Please return to the emergency department if you have any worsening, or concern of your symptoms. Please return to the emergency department if you develop chest pain, difficulty breathing, severe abdominal pain, or ongoing vomiting. Please follow-up with your primary care physician in 2-3 days and any other recommended physicians. If prescribed, take all medications as directed. If you have any questions or concerns do not hesitate to return the emergency department for evaluation. [] Forms: Parent Work Note Referrals: SMITA BARDALES MD [Primary Care Provider] - Follow up as needed GHANSHYAM TATUM MD [EMERITUS] - Follow up in 3-5 days
--- NOTE | 2018-07-18 13:44 | RADIOLOGY REPORT (SQ) ---
EXAM DESCRIPTION: U/S [id number] TRNABD 1GES W/ODOP COMPLETED DATE/TIME: 07/18/2018 1:31 pm REASON FOR STUDY: First trimester with abdominal pain COMPARISON: None. TECHNIQUE: Transabdominal static and realtime grayscale images acquired of the pelvis. Additional se lected spectral and color Doppler images recorded. All images stored on PACs. bHCG: Not available. CLINICAL DATES: LMP 06/18/2018 4 weeks 2 days. LIMITATIONS: None. FINDINGS: There is no identifiable intrauterine gestational sac. UTERUS: No masses or anomalies. 10.5 x 5.9 x 5.3 cm. There is a small amount of fluid in the endome trial canal. CERVICAL LENGTH: 2.2 cm. Closed. RIGHT ADNEXA: Normal ovary with normal vascular flow. 4.2 x 2.7 x 2.9 cm. No adnexal free fluid. No adnexal masses. LEFT ADNEXA: Normal ovary with normal vascular flow. 3.5 x 2.6 x 2.6 cm. There is a 2.5 cm cyst. No adnexal free fluid. No adnexal masses. FREE FLUID: None. OTHER: No other significant finding. IMPRESSION: No intrauterine gestation is identified at this time. Follow-up as clinically indicated . TECHNICAL DOCUMENTATION: JOB ID: [id number] [employer]- All Rights Reserved rev Reading location - IP/workstation name: [email or web address]
[2018-07-18 14:08] VITALS: BP 130/77
== END 2018-07-18 14:08 | disposition home or self-care (01) ==
LOC: ER 11:32
DX: O26.891 Other specified pregnancy related conditions, first trimester (principal); R10.2 Pelvic and perineal pain; O16.1 Unspecified maternal hypertension, first trimester; Z3A.01 Less than 8 weeks gestation of pregnancy; Z87.59 Personal history of other complications of pregnancy, childbirth and the puerperium
CPT/HCPCS: 99284; 36415; 84702; 85025; 80053; 81001; 76801; J3490; S0119

== ENCOUNTER 2018-07-24 11:17 | Emergency (ER) | payer MEDICAID ==
[2018-07-24] MEDS ORDERED: ACETAMINOPHEN 325 MG TABLET PO ONE (11:42)
--- NOTE | 2018-07-24 11:42 | ER Document Report ---
ED General - General Chief Complaint: Abdominal Cramping Stated Complaint: CRAMPING/HEADACHE Time Seen by Provider: 07/24/18 11:34 Notes: Patient is a 33-year-old female, approximately 5 weeks gravid, that presents to the emergency department for chief complaint of pelvic cramping, and mild headache. Patient reports that she has been having pelvic cramping on and off over the past week and a half, she was seen in the emergency department about 1 week ago, told they did not see an intrauterine , however her hCG was positive. She called OB today, they advised to come back to the emergency department, to be reevaluated, she still having the pelvic cramping currently she rates it as a 4 out of 10, and she has a mild headache she describes as a 2 out of 10, holocephalic headache. She does have history of hypertension, was previously on hydrochlorothiazide, prior to , but currently not taking any medications for blood pressure, she thinks this may be causing her headache. Denies any numbness, weakness or tingling in any of her extremities. Past Medical History: Hypertension, spina bifida Past Surgical History: Cholecystectomy, C-sections x4 Social History: Denies current tobacco, alcohol or illicit drug use. Family History: Reviewed and noncontributory for presenting illness Allergies: Reviewed, see documented allergy list. REVIEW OF SYSTEMS: Other than noted above, the 12 point review of systems was reviewed with the patient and were negative, all pertinent findings are included in the HPI. PHYSICAL EXAMINATION: Vital signs reviewed, nursing noted reviewed. GENERAL: Well-appearing, well-nourished and in no acute distress. HEAD: Atraumatic, normocephalic. EYES: Eyes appear normal, extraocular movements intact, sclera anicteric, conjunctiva are normal. ENT: nares patent, oropharynx clear without exudates. Moist mucous membranes. NECK: Normal range of motion, supple without lymphadenopathy LUNGS: Breath sounds clear to auscultation bilaterally and equal. No wheezes rales or rhonchi. HEART: Regular rate and rhythm without murmurs ABDOMEN: Soft, nontender, normoactive bowel sounds. No rebound, guarding, or rigidity. No masses appreciated. EXTREMITIES: Nontender, good range of motion, no pitting or edema. NEUROLOGICAL: No focal neurological deficits. Moves all extremities spontaneously Motor and sensory grossly intact on exam. PSYCH: Normal mood, normal affect. SKIN: Warm, Dry, normal turgor, no rashes or lesions noted on exposed skin TRAVEL OUTSIDE OF THE [place] IN LAST 30 DAYS: No - Related Data Allergies/Adverse Reactions: No Known Allergies Allergy (Verified 07/24/18 11:20) Past Medical History - Social History Smoking Status: Never Smoker Chew tobacco use (# tins/day): No Drug Abuse: None Family History: Reviewed & Not Pertinent Patient has suicidal ideation: No Patient has homicidal ideation: No - Past Medical History Cardiac Medical History: Reports: Hx Hypertension Pulmonary Medical History: Reports: Hx Sleep Apnea Neurological Medical History: Reports: Hx Migraine. Denies: Hx Seizures Endocrine Medical History: Denies: Hx Hyperthyroidism, Hx Hypothyroidism Renal/ Medical History: Reports: Hx Ovarian Cysts. Denies: Hx Kidney Stones, Hx Peritoneal Dialysis, Hx Pelvic Inflammatory Disease Malignancy Medical History: Denies: Hx Breast Cancer, Hx Cervical Cancer, Hx Ovarian Cancer GI Medical History: Reports: Hx Gastroesophageal Reflux Disease. Denies: Hx Hiatal Hernia, Hx Ulcer Musculoskeletal Medical History: Denies Hx Fibromyalgia Traumatic Medical History: Denies: Hx Fractures Past Surgical History: Reports: Hx Section - x4 sec, Hx Cholecystectomy. Denies: Hx Hysterectomy, Hx Pacemaker - Immunizations Hx Diphtheria, Pertussis, Tetanus Vaccination: Yes Physical Exam - Vital signs Vitals: Temp Pulse Resp BP Pulse Ox 98.7 F 90 18 150/78 H 100 07/24/18 11:25 07/24/18 11:25 07/24/18 11:25 07/24/18 11:25 07/24/18 11:25 Course - Re-evaluation Re-evalutation: I personally and independently obtained patient history and examined the patient in conjunction with the APC and agree with the assessment, treatment plan and disposition of the patient as recorded by the APC, and have reviewed the APC's note. Patient's workup was essentially unremarkable, advancing hCG, likely a developing intrauterine , patient made aware, she did have trace signs of possible UTI, versus contaminant, however given she is been having cramping in early , will treat with Keflex for 5 days. Laboratory 07/24/18 07/24/18 11:50 11:50 Beta HCG, Quant 1046.70 H Total Beta HCG POSITIVE Urine Color YELLOW Urine Appearance CLOUDY Urine pH 5.0 Ur Specific [place] 1.011 Urine Protein NEGATIVE Urine Glucose (UA) NEGATIVE Urine Ketones NEGATIVE Urine Blood NEGATIVE Urine Nitrite NEGATIVE Urine Bilirubin NEGATIVE Urine Urobilinogen NEGATIVE Ur Leukocyte Esterase SMALL H Urine WBC (Auto) 4 Urine RBC (Auto) 3 Urine Bacteria (Auto) TRACE Squamous Epi Cells Auto 9 Urine Mucus (Auto) RARE Urine Ascorbic Acid NEGATIVE Obstetrics Ultrasound 07/24/18 11:41 IMPRESSION: Right and left ovarian hemorrhagic cysts. Tiny anechoic cystic structure in the endometrium. These findings most likely represent an intrauterine with either a right or left corpus luteum cyst. Pseudogestational sac and ovarian ectopic could not entirely be excluded. Close clinical follow-up with serial quantitative HCG and possible repeat ultrasound recommended. Trimester of : First - 0 to 13 weeks. - Vital Signs Vital signs: Temp Pulse Resp BP Pulse Ox 99.3 F 87 18 133/56 H 99 07/24/18 14:54 07/24/18 14:54 07/24/18 11:25 07/24/18 14:54 07/24/18 14:54 - Laboratory Laboratory results interpreted by me: 07/24/18 07/24/18 11:50 11:50 Beta HCG, Quant 1046.70 H Ur Leukocyte Esterase SMALL H Discharge - Discharge Clinical Impression: Early stage of Pelvic pain affecting Qualifiers: Trimester: first trimester Qualified Code(s): O26.891 - Other specified related conditions, first trimester Ovarian cyst Qualifiers: Laterality: bilateral Qualified Code(s): N83.201 - Unspecified ovarian cyst, right side Condition: Stable Disposition: HOME, SELF-CARE Instructions: Ovarian Cyst ([facility]) Additional Instructions: You have hemorrhagic ovarian cysts bilaterally with possible early intrauterine . This is still a very early and he will need to recheck your hCG in 2-3 days with a repeat ultrasound next week. You should have this performed with [employer] COORDINATOR, but do not hesitate to return with worsening symptoms. Maintain fluid intake Proper hygienic technique Keep the skin clean Tylenol as needed F/u with your PCM/OBGYN in 3-5 days for a recheck Return to the ED with any development of LU/fever, trouble with vision, eye redness, worsening pain, urethral discharge, urinary retention, blood in the urine, flank pain, abdominal pain, n/v, Chest Pain, shortness of breath, joint pains, trouble breathing, or any other worsening/concerning symptoms as needed otherwise. Prescriptions: Cephalexin Monohydrate [Keflex 500 mg Capsule] 500 mg PO BID #10 capsule Forms: Elevated Blood Pressure, Follow-Up Laboratory Testing, Return to Work Referrals: [facility] [Provider Group] - Follow up in 3-5 days SMITA BARDALES MD [Primary Care Provider] - Follow up in 3-5 days
[2018-07-24] MEDS ORDERED: ONDANSETRON 4 MG TAB.RAPDIS PO ONE (12:21)
--- NOTE | 2018-07-24 12:24 | ER Document Report ---
ED General - General Chief Complaint: Abdominal Cramping Stated Complaint: CRAMPING/HEADACHE Time Seen by Provider: 07/24/18 11:34 TRAVEL OUTSIDE OF THE [place] IN LAST 30 DAYS: No - HPI Notes: Patient is a 33-year-old female with 3 miscarriages approximately 5-6 weeks by gestation who presents to the ED complaining of continued intermittent pelvic cramping with associated nausea, no vomiting. Patient states her symptoms have been ongoing over the last 1.5 weeks. Denies drug allergies. She was evaluated about a week ago and had an unremarkable workup with no proof of intrauterine at that time. Will be instructed her to come to the emergency department for another evaluation which is why she is here. She is otherwise still able to eat and drink, but does have a decreased p.o. intake. She has been urinating normally and having normal bowel movements. She has not had any vaginal discharge, odor, or bleeding. Denies drug allergies. Patient does have a history of hypertension, but is not currently taking any medications for it. She has an occasional headache which she describes as mild at this time. Denies any fever, head injury, neck pain, changes in vision/ speech/mentation/hearing, URI, sore throat, chest pain, palpitations, syncope, cough, shortness of breath, wheeze, dyspnea, vomiting/diarrhea, urinary retention, dysuria, hematuria, loss of control of bowel or bladder, numbness/ tingling, saddle anesthesia, muscle paralysis/weakness, or rash. - Related Data Allergies/Adverse Reactions: No Known Allergies Allergy (Verified 07/24/18 11:20) Past Medical History - Social History Smoking Status: Never Smoker Chew tobacco use (# tins/day): No Drug Abuse: None Family History: Reviewed & Not Pertinent Patient has suicidal ideation: No Patient has homicidal ideation: No - Past Medical History Cardiac Medical History: Reports: Hx Hypertension Pulmonary Medical History: Reports: Hx Sleep Apnea Neurological Medical History: Reports: Hx Migraine. Denies: Hx Seizures Endocrine Medical History: Denies: Hx Hyperthyroidism, Hx Hypothyroidism Renal/ Medical History: Reports: Hx Ovarian Cysts. Denies: Hx Kidney Stones, Hx Peritoneal Dialysis, Hx Pelvic Inflammatory Disease Malignancy Medical History: Denies: Hx Breast Cancer, Hx Cervical Cancer, Hx Ovarian Cancer GI Medical History: Reports: Hx Gastroesophageal Reflux Disease. Denies: Hx Hiatal Hernia, Hx Ulcer Musculoskeletal Medical History: Denies Hx Fibromyalgia Traumatic Medical History: Denies: Hx Fractures Past Surgical History: Reports: Hx Section - x4 sec, Hx Cholecystectomy. Denies: Hx Hysterectomy, Hx Pacemaker - Immunizations Hx Diphtheria, Pertussis, Tetanus Vaccination: Yes Review of Systems - Review of Systems -: Yes All other systems reviewed and negative Physical Exam - Vital signs Vitals: Temp Pulse Resp BP Pulse Ox 98.7 F 90 18 150/78 H 100 07/24/18 11:25 07/24/18 11:25 07/24/18 11:25 07/24/18 11:25 07/24/18 11:25 - Notes Notes: PHYSICAL EXAMINATION: GENERAL: Well-appearing, well-nourished and in no acute distress. HEAD: Atraumatic, normocephalic. EYES: Pupils equal round and reactive to light, extraocular movements intact, sclera anicteric, conjunctiva are normal. ENT: Nares patent and without discharge. oropharynx clear without exudates. No tonsilar hypertrophy or erythema. Moist mucous membranes. NECK: Normal range of motion, supple without lymphadenopathy LUNGS: Breath sounds clear to auscultation bilaterally and equal. No wheezes rales or rhonchi. HEART: Regular rate and rhythm without murmurs, rubs, gallops. ABDOMEN: Soft, nontender, nondistended abdomen. No guarding, no rebound. No masses appreciated. Normal bowel sounds present. No CVA tenderness bilaterally. : deferred Musculoskeletal: FROM to passive/active. Strength 5+/5. Extremities: No cyanosis, clubbing, or edema b/l. Peripheral pulses 2+. Capillary refill less than 3 seconds. NEUROLOGICAL: Cranial nerves grossly intact. Normal speech, normal gait. Normal sensory, motor exams PSYCH: Normal mood, normal affect. SKIN: Warm, Dry, normal turgor, no rashes or lesions noted. Course - Re-evaluation Re-evalutation: 07/24/18 14:42 Patient is an afebrile, well-hydrated, 33-year-old female who presents to the ED with pelvic cramping, hemorrhagic cysts, and possible early intrauterine . Vitals are acceptable without any significant tachycardia, tachypnea , or hypoxia. PE is otherwise unremarkable. HCG at 1046. See TVUS result. UA unremarkable. Patient is nontoxic-appearing and is tolerating p.o. without any difficulties. No other labs or imaging warranted at this time based on H& P. Low suspicion/risk for acute appendicitis, bowel obstruction, acute cholecystitis, acute cholangitis, perforated diverticulitis, incarcerated hernia , pancreatitis, perforated ulcer, peritonitis, sepsis, pelvic inflammatory disease, ectopic , tubo-ovarian abscess, ovarian torsion, or other systemic emergent condition at this time. Patient is aware that her condition can change from initial presentation and she needs to monitor symptoms closely and seek medical attention if any acute changes. Recheck HCG in 2-3 days, may need repeat US next week as well. Conservative measures otherwise for symptoms. Recheck with your PCM/OBGYN in 3-5 days. Return to the ED with any worsening/concerning symptoms otherwise as reviewed in discharge. Patient is in agreement. - Vital Signs Vital signs: Temp Pulse Resp BP Pulse Ox 98.7 F 90 18 150/78 H 100 07/24/18 11:25 07/24/18 11:25 07/24/18 11:25 07/24/18 11:25 07/24/18 11:25 - Laboratory Laboratory results interpreted by me: 07/24/18 07/24/18 11:50 11:50 Beta HCG, Quant 1046.70 H Ur Leukocyte Esterase SMALL H Discharge - Discharge Clinical Impression: Early stage of Pelvic pain affecting Qualifiers: Trimester: first trimester Qualified Code(s): O26.891 - Other specified related conditions, first trimester; R10.2 - Pelvic and perineal pain ; R10.2 - Pelvic and perineal pain Ovarian cyst Qualifiers: Laterality: bilateral Qualified Code(s): N83.201 - Unspecified ovarian cyst, right side; N83.202 - Unspecified ovarian cyst, left side; N83.202 - Unspecified ovarian cyst, left side Condition: Stable Disposition: HOME, SELF-CARE Instructions: Ovarian Cyst ([facility]) Additional Instructions: You have hemorrhagic ovarian cysts bilaterally with possible early intrauterine . This is still a very early and he will need to recheck your hCG in 2-3 days with a repeat ultrasound next week. You should have this performed with SUPER[employer]OR [employer]IG[employer] MAKING MACHINE, but do not hesitate to return with worsening symptoms. Maintain fluid intake Proper hygienic technique Keep the skin clean Tylenol as needed F/u with your PCM/OBGYN in 3-5 days for a recheck Return to the ED with any development of LU/fever, trouble with vision, eye redness, worsening pain, urethral discharge, urinary retention, blood in the urine, flank pain, abdominal pain, n/v, Chest Pain, shortness of breath, joint pains, trouble breathing, or any other worsening/concerning symptoms as needed otherwise. Forms: Elevated Blood Pressure, Follow-Up Laboratory Testing Referrals: SMITA BARDALES MD [Primary Care Provider] - Follow up in 3-5 days [facility] [Provider Group] - Follow up in 3-5 days
[2018-07-24 12:44] LABS: APPEARANCE,URINE CLOUDY; BILIRUBIN,URINE NEGATIVE (NEGATIVE); COLOR,URINE YELLOW; GLUCOSE, URINE NEGATIVE (NEGATIVE); KETONES,URINE NEGATIVE (NEGATIVE); LEUKOCYTE ESTERASE,URINE SMALL (NEGATIVE); NITRITE,URINE NEGATIVE (NEGATIVE); PROTEIN,URINE NEGATIVE (NEGATIVE); URINE SPECIFIC GRAVITY 1.011; UROBILINOGEN,URINE NEGATIVE mg/dL (<2.0)
--- NOTE | 2018-07-24 14:28 | RADIOLOGY REPORT (SQ) ---
EXAM DESCRIPTION: U/S OB TRANSVAGINAL W/O DOP COMPLETED DATE/TIME: 07/24/2018 2:12 pm REASON FOR STUDY: +hcg, cramping , cramping COMPARISON: 07/18/2018 TECHNIQUE: Endovaginal static and realtime grayscale images acquired of the pelvis. Additional selec anita spectral and color Doppler images recorded. All images stored on PACs. [facility] [place]: 1,046 today 56.6 on 07/18/2018 CLINICAL DATES: Not known LIMITATIONS: None. FINDINGS: In the fundal endometrium, a tiny anechoic cystic structure is present which may represent a small intrauterine gestational sac, less than 5 weeks. This is not well developed enough to see e mbryo or yolk sac. PLACENTA: Not yet developed due to early gestation. SUBCHORIONIC BLEED: None SIZE OF BLEED: Not applicable. UTERUS: No masses. No anomalies. Uterus is 10.3 x 6 x 5.2 cm in size CERVICAL LENGTH: Closed. RIGHT ADNEXA: Right ovary is 4 x 3.5 x 2.8 cm in size with normal vascular flow. 1.5 cm hemorrhagic cyst is present right ovary. No adnexal free fluid. No adnexal masses. LEFT ADNEXA: Normal ovary with normal vascular flow. Left ovary 4.5 x 3.6 x 3.8 cm in size with a 2. 8 x 2.5 cm hemorrhagic cyst No adnexal free fluid. No adnexal masses. FREE FLUID: None. OTHER: No other significant finding. IMPRESSION: Right and left ovarian hemorrhagic cysts. Tiny anechoic cystic structure in the endomet rium. These findings most likely represent an intrauterine with either a right or left cor pus luteum cyst. Pseudogestational sac and ovarian ectopic could not entirely be excluded. Close clinical follow-up with serial quantitative HCG and possible repeat ultrasound recommended. Trimester of : First - 0 to 13 weeks. TECHNICAL DOCUMENTATION: JOB ID: [id number] [employer]- All Rights Reserved rev-01/26 Reading location - IP/workstation name: [email or web address]
[2018-07-24 14:55] VITALS: BP 133/56
== END 2018-07-24 16:01 | disposition home or self-care (01) ==
LOC: ER 11:17
DX: O34.81 Maternal care for other abnormalities of pelvic organs, first trimester (principal); N83.202 Unspecified ovarian cyst, left side; N83.201 Unspecified ovarian cyst, right side; O26.891 Other specified pregnancy related conditions, first trimester; R10.2 Pelvic and perineal pain; R51 Headache; R11.0 Nausea; O16.1 Unspecified maternal hypertension, first trimester; Z3A.00 Weeks of gestation of pregnancy not specified
CPT/HCPCS: 99284; 36415; 87086; 84702; 81001; 76817; J3490; S0119

== ENCOUNTER → 2018-07-30 | Outpatient (CLI) | payer MEDICAID | LOC: LAB 16:19 | PROVIDERS: ATTEND Physician Assistant Medical | DX: O26.899 Other specified pregnancy related conditions, unspecified trimester (principal); R10.9 Unspecified abdominal pain | CPT/HCPCS: 36415; 84702 ==

== ENCOUNTER 2018-08-05 06:19 | Emergency (ER) | payer MEDICAID ==
--- NOTE | 2018-08-05 07:46 | ER Document Report ---
ED General - General Chief Complaint: Abdominal Pain Stated Complaint: ABDOMINAL PAIN,CRAMPING, NAUSEA Time Seen by Provider: 08/05/18 07:22 TRAVEL OUTSIDE OF THE [place] IN LAST 30 DAYS: No - HPI Notes: Patient is a 33-year-old female who presents to the ED in early complaining of right abdominal soreness that began at 4 AM today. Patient states that the pain does not radiate and has improved, but is still lingering. She is able to eat and drink without any difficulties. She is urinating normally and having normal bowel movements, but is having issues with constipation. Patient states that she does have some nausea, but believes it may be associate with the . Patient was evaluated last week and had a low hCG, but has significantly increased since then. No ectopic could be ruled out at that time. Patient has had 4 previous miscarriages. She has a history of a cholecystectomy. No other concerns or complaints. Denies any headache, fever, URI, sore throat, chest pain, palpitations, syncope, cough, shortness of breath, wheeze, dyspnea, vomiting/diarrhea, urinary retention, dysuria, hematuria, loss of control of bowel or bladder, numbness/tingling, saddle anesthesia, muscle paralysis/weakness, or rash. - Related Data Allergies/Adverse Reactions: hydrocodone Allergy (Verified 08/05/18 06:20) Hives Past Medical History - Social History Smoking Status: Unknown if Ever Smoked Family History: Reviewed & Not Pertinent - Past Medical History Cardiac Medical History: Reports: Hx Hypertension Pulmonary Medical History: Reports: Hx Sleep Apnea Neurological Medical History: Reports: Hx Migraine. Denies: Hx Seizures Endocrine Medical History: Denies: Hx Hyperthyroidism, Hx Hypothyroidism Renal/ Medical History: Reports: Hx Ovarian Cysts. Denies: Hx Kidney Stones, Hx Peritoneal Dialysis, Hx Pelvic Inflammatory Disease Malignancy Medical History: Denies: Hx Breast Cancer, Hx Cervical Cancer, Hx Ovarian Cancer GI Medical History: Reports: Hx Gastroesophageal Reflux Disease. Denies: Hx Hiatal Hernia, Hx Ulcer Musculoskeletal Medical History: Denies Hx Fibromyalgia Traumatic Medical History: Denies: Hx Fractures Past Surgical History: Reports: Hx Section - x4 sec, Hx Cholecystectomy. Denies: Hx Hysterectomy, Hx Pacemaker - Immunizations Hx Diphtheria, Pertussis, Tetanus Vaccination: Yes Review of Systems - Review of Systems -: Yes All other systems reviewed and negative Physical Exam - Vital signs Vitals: Temp Pulse Resp BP Pulse Ox 98.9 F 98 14 139/87 H 95 08/05/18 06:20 08/05/18 06:20 08/05/18 06:20 08/05/18 06:20 08/05/18 06:20 - Notes Notes: PHYSICAL EXAMINATION: GENERAL: Well-appearing, well-nourished and in no acute distress. HEAD: Atraumatic, normocephalic. EYES: Pupils equal round and reactive to light, extraocular movements intact, sclera anicteric, conjunctiva are normal. ENT: Nares patent and without discharge. oropharynx clear without exudates. No tonsilar hypertrophy or erythema. Moist mucous membranes. NECK: Normal range of motion, supple without lymphadenopathy LUNGS: Breath sounds clear to auscultation bilaterally and equal. No wheezes rales or rhonchi. HEART: Regular rate and rhythm without murmurs, rubs, gallops. ABDOMEN: Soft, nondistended abdomen. No guarding, no rebound. No masses appreciated. Normal bowel sounds present. No CVA tenderness bilaterally. + mild tenderness RUQ to mid. No lower tenderness. Musculoskeletal: FROM to passive/active. Strength 5+/5. Extremities: No cyanosis, clubbing, or edema b/l. Peripheral pulses 2+. Capillary refill less than 3 seconds. NEUROLOGICAL: Normal speech, normal gait. PSYCH: Normal mood, normal affect. SKIN: Warm, Dry, normal turgor, no rashes or lesions noted. Course - Re-evaluation Re-evalutation: 08/05/18 09:36 Patient is an afebrile, well-hydrated, 33-year-old female who presents to the ED with rt abd pain, unspecified, and IUP. I suspect her intermittent abd pain could be due to her having constipation issues. Vitals are acceptable without any significant tachycardia, tachypnea, or hypoxia. PE is otherwise unremarkable. CBC, CMP, lipase unremarkable for acute pathology. HCG appropriate and rising. TVUS shows evidence of IUP approx 6wk 6 day with HR 124. No subchorionic hemorrhage noted. UA unremarkable. Patient is nontoxic- appearing is tolerating p.o. without any difficulties. Pt has had resolution of her abd discomfort. No other labs or imaging warranted at this time based on H& P. Low suspicion/risk for acute appendicitis, bowel obstruction, acute cholecystitis, acute cholangitis, perforated diverticulitis, incarcerated hernia , pancreatitis, perforated ulcer, peritonitis, sepsis, pelvic inflammatory disease, ectopic , tubo-ovarian abscess, ovarian torsion, or other systemic emergent condition at this time. Patient is aware that her condition can change from initial presentation and she needs to monitor symptoms closely and seek medical attention if any acute changes. Recheck with your PCM/OBGYN in 3-5 days. Return to the ED with any worsening/concerning symptoms otherwise as reviewed in discharge. Patient is in agreement. - Vital Signs Vital signs: Temp Pulse Resp BP Pulse Ox 98.9 F 98 14 139/87 H 95 08/05/18 06:20 08/05/18 06:20 08/05/18 06:20 08/05/18 06:20 08/05/18 06:20 - Laboratory Result Diagrams: 08/05/18 07:40 08/05/18 07:40 Laboratory results interpreted by me: 08/05/18 08/05/18 07:40 07:40 Hgb 11.7 L Hct 35.1 L RDW 15.4 H Glucose 120 H Total Bilirubin 0.1 L Beta HCG, Quant 49141.00 H Discharge - Discharge Clinical Impression: Abdominal pain Qualifiers: Abdominal location: unspecified location Qualified Code(s): R10.9 - Unspecified abdominal pain Qualifiers: Weeks of gestation: less than 8 weeks Qualified Code(s): Z3A.01 - Less than 8 weeks gestation of Condition: Stable Disposition: HOME, SELF-CARE Instructions: Abdominal Pain ([facility]) Additional Instructions: Maintain adequate fluid and food intake High fiber/water intake tylenol if needed Monitor for any worsening symptoms Make sure you are staying hydrated enough to urinate and have normal BM's (may use stool softeners that are safe in -call your OBGYN) Recheck with your PCM/OBGYN in 3-5 days Consider consult with Gastroenterology for ongoing/worsening symptoms Return to the ED with any worsening symptoms and/or development of fever, headache, chest pain, palpitations, syncope, shortness of breath, trouble breathing, abdominal pain, n/v/d, blood in stool/urine, weakness, or other worsening symptoms that are concerning to you. Forms: Elevated Blood Pressure Referrals: POLL CLERK [Provider Group] - Follow up in 3-5 days
[2018-08-05 08:11] LABS: ABSOLUTE EOSINOPHILS # (AUTO) 0.1 10^3/uL (0.0-0.6); ABSOLUTE LYMPHOCYTES (AUTO) 3.1 10^3/uL (0.5-4.7); ABSOLUTE MONOCYTES (AUTO) 0.4 10^3/uL (0.1-1.4); ABSOLUTE NEUT (AUTO) 5.2 10^3/uL (1.7-8.2); BASOPHILS % (AUTO) 0.3 % (0-2); HEMATOCRIT 35.1 % (36.0-47.0); HEMOGLOBIN 11.7 g/dL (12.0-15.5); LYMPHOCYTES % (AUTO) 35.2 % (13-45); MEAN CORPUSCULAR HEMOGLOBIN 27.1 pg (27.0-33.4); MEAN CORPUSCULAR HGB CONC 33.2 g/dL (32.0-36.0); MEAN CORPUSCULAR VOLUME 81 fl (80-97); MONOCYTES % (AUTO) 4.9 % (3-13); PLATELET COUNT 314 10^3/uL (150-450); RED BLOOD COUNT 4.31 10^6/uL (3.72-5.28); RED CELL DISTRIBUTION WIDTH 15.4 % (11.5-14.0); SEGMENTED NEUTROPHILS % (AUTO) 58.6 % (42-78); TOTAL CELLS COUNTED % (AUTO) 100 %; WHITE BLOOD COUNT 8.9 10^3/uL (4.0-10.5)
[2018-08-05 08:16] LABS: ALANINE AMINOTRANSFERASE 28 U/L (9-52); ALBUMIN 3.9 g/dL (3.5-5.0); ALKALINE PHOSPHATASE 59 U/L (38-126); ANION GAP 12 (5-19); ASPARTATE AMINO TRANSFERASE 21 U/L (14-36); BILIRUBIN,DIRECT 0.1 mg/dL (0.0-0.4); BILIRUBIN,TOTAL 0.1 mg/dL (0.2-1.3); BLOOD UREA NITROGEN 11 mg/dL (7-20); CALCIUM 9.5 mg/dL (8.4-10.2); CARBON DIOXIDE 23 mmol/L (22-30); CHLORIDE 103 mmol/L (98-107); GLUCOSE 120 mg/dL (75-110); LIPASE 58.7 U/L (23-300); POTASSIUM 4.6 mmol/L (3.6-5.0); SODIUM 138.2 mmol/L (137-145); TOTAL PROTEIN 6.8 g/dL (6.3-8.2)
--- NOTE | 2018-08-05 09:03 | RADIOLOGY REPORT (SQ) ---
EXAM DESCRIPTION: U/S OB TRANSVAGINAL W/O DOP COMPLETED DATE/TIME: 08/05/2018 8:36 am REASON FOR STUDY: Rt lower pain, COMPARISON: Prior OB ultrasound 07/18/2018, 07/24/2018 TECHNIQUE: Endovaginal static and realtime grayscale images acquired of the pelvis. Additional selec anita spectral and color Doppler images recorded. All images stored on PACs. bHCG: Not available CLINICAL DATES: Last menses 06/18/2018 LIMITATIONS: None. FINDINGS: FETUS: Single Living intrauterine . ULTRASOUND EGA: 6 weeks 6 days ULTRASOUND MILENA: 03/25/2019 EFW: Not applicable less than 20 weeks. CRL: 0.9 cm FHR: 124 beats per minute. SURVEY: Too early to assess AMNIOTIC FLUID: Adequate amount. PLACENTA: Not yet developed due to early gestation. SUBCHORIONIC BLEED: No SIZE OF BLEED: Not applicable. UTERUS: No masses. No anomalies. 11 x 7 x 6 cm in size CERVICAL LENGTH: 3.3 cm Closed. RIGHT ADNEXA: Right ovary measures 4.2 x 3.1 x 3.1 cm, with normal vascular flow. Hemorrhagic cyst, 2 x 1.3 cm in size (was 2 x 1.5 cm in size on 07/24/2018). No right adnexal free fluid. LEFT ADNEXA: Left ovary measures 3.6 x 3.1 x 3.3 cm in size, with normal vascular flow. Hemorrhagic cyst, 3.6 x 3.3 cm in size (was 2.8 x 2.5 cm on 07/24/2018). No adnexal free fluid. FREE FLUID: None. OTHER: No other significant finding. IMPRESSION: LIVING INTRAUTERINE . EGA 6 weeks 6 days, estimated due date 03/25/2019 Trimester of : First - 0 to 13 weeks. TECHNICAL DOCUMENTATION: JOB ID: [id number] [employer]- All Rights Reserved rev Reading location - IP/workstation name: [email or web address]
[2018-08-05 09:37] LABS: APPEARANCE,URINE CLEAR; BILIRUBIN,URINE NEGATIVE (NEGATIVE); COLOR,URINE YELLOW; GLUCOSE, URINE NEGATIVE (NEGATIVE); KETONES,URINE NEGATIVE (NEGATIVE); LEUKOCYTE ESTERASE,URINE NEGATIVE (NEGATIVE); NITRITE,URINE NEGATIVE (NEGATIVE); PROTEIN,URINE NEGATIVE (NEGATIVE); URINE SPECIFIC GRAVITY 1.015; UROBILINOGEN,URINE NEGATIVE mg/dL (<2.0)
[2018-08-05 09:51] VITALS: BP 110/52
== END 2018-08-05 09:58 | disposition home or self-care (01) ==
LOC: ER 06:19
DX: O26.891 Other specified pregnancy related conditions, first trimester (principal); R10.9 Unspecified abdominal pain; R11.0 Nausea; O16.1 Unspecified maternal hypertension, first trimester; Z3A.01 Less than 8 weeks gestation of pregnancy; Z90.49 Acquired absence of other specified parts of digestive tract
CPT/HCPCS: 36415; 76817; 80053; 81001; 83690; 84702; 85025; 87086; 99284

== ENCOUNTER 2018-09-12 16:32 | Emergency (ER) | payer MEDICAID ==
[2018-09-12 16:42] VITALS: BP 141/93
[2018-09-12] MEDS ORDERED: ACETAMINOPHEN 325 MG TABLET PO ONE (18:30)
--- NOTE | 2018-09-12 18:33 | ER Document Report ---
ED Medical Screen (RME) - General Mode of Arrival: Ambulatory Information source: Patient TRAVEL OUTSIDE OF THE [place] IN LAST 30 DAYS: No <THIERNO FELIZ - Last Filed: 09/12/18 18:40> <JOVAN RETANA - Last Filed: 09/12/18 20:16> - General Chief Complaint: Abdominal Cramping Stated Complaint: PELVIC CRAMPING, NAUSEA Time Seen by Provider: 09/12/18 18:24 Notes: Patient is an otherwise healthy 33-year-old female who presents with chief complaint of abdominal cramping, nausea and pink vaginal discharge that she noted yesterday. Patient reports she is approximately 12 weeks . She is a AB3. She reports she is seen by a specialty OB in [place] due to being high risk. Per [facility] records patient has O+ blood type according to records from 09/15/11. Exam: Generalized tenderness to palpation to abdomen. I have greeted and performed a rapid initial assessment of this patient. A comprehensive ED assessment and evaluation of the patient, analysis of test results and completion of the medical decision making process will be conducted by additional ED providers. Dictation of this chart was performed using voice recognition software; therefore, there may be some unintended grammatical errors. (THIERNO FELIZ) - Related Data Allergies/Adverse Reactions: hydrocodone Allergy (Verified 09/12/18 16:32) Hives Past Medical History - Social History Chew tobacco use (# tins/day): No Frequency of alcohol use: None Drug Abuse: None - Past Medical History Cardiac Medical History: Reports: Hx Hypertension Pulmonary Medical History: Reports: Hx Sleep Apnea Neurological Medical History: Reports: Hx Migraine. Denies: Hx Seizures Endocrine Medical History: Denies: Hx Hyperthyroidism, Hx Hypothyroidism Renal/ Medical History: Reports: Hx Ovarian Cysts. Denies: Hx Kidney Stones, Hx Peritoneal Dialysis, Hx Pelvic Inflammatory Disease Malignancy Medical History: Denies: Hx Breast Cancer, Hx Cervical Cancer, Hx Ovarian Cancer GI Medical History: Reports: Hx Gastroesophageal Reflux Disease. Denies: Hx Hiatal Hernia, Hx Ulcer Musculoskeltal Medical History: Denies Hx Fibromyalgia Traumatic Medical History: Denies: Hx Fractures Past Surgical History: Reports: Hx Section - x4 sec, Hx Cholecystectomy. Denies: Hx Hysterectomy, Hx Pacemaker - Immunizations Hx Diphtheria, Pertussis, Tetanus Vaccination: Yes <THIERNO FELIZ - Last Filed: 09/12/18 18:40> - Vital signs Vitals: Temp Pulse Resp BP Pulse Ox 98.6 F 122 H 18 141/93 H 96 09/12/18 16:39 09/12/18 16:39 09/12/18 16:39 09/12/18 16:39 09/12/18 16:39 Course - Laboratory Result Diagrams: 09/12/18 18:40 09/12/18 18:40 <JOVAN RETANA - Last Filed: 09/12/18 20:16> - Re-evaluation Re-evalutation: 09/12/18 20:16 I was personally available for consultation during this patient's ED course (JOVAN RETANA) - Vital Signs Vital signs: Temp Pulse Resp BP Pulse Ox 98.6 F 122 H 18 141/93 H 96 09/12/18 16:39 09/12/18 16:39 09/12/18 16:39 09/12/18 16:39 09/12/18 16:39 - Laboratory Laboratory results interpreted by me: 09/12/18 09/12/18 09/12/18 18:35 18:40 18:40 WBC 11.2 H RDW 15.8 H Sodium 133.9 L Glucose 132 H Beta HCG, Quant 36051.00 H Urine Blood SMALL H Urine HCG, Qual POSITIVE H Doctor's Discharge <THIERNO FELIZ - Last Filed: 09/12/18 18:40> <JOVAN RETANA - Last Filed: 09/12/18 20:16> - Discharge Referrals: SMITA BARDALES MD [Primary Care Provider] - Follow up as needed
[2018-09-12 19:01] LABS: ABSOLUTE EOSINOPHILS # (AUTO) 0.1 10^3/uL (0.0-0.6); ABSOLUTE LYMPHOCYTES (AUTO) 3.1 10^3/uL (0.5-4.7); ABSOLUTE MONOCYTES (AUTO) 0.7 10^3/uL (0.1-1.4); ABSOLUTE NEUT (AUTO) 7.3 10^3/uL (1.7-8.2); BASOPHILS % (AUTO) 0.2 % (0-2); EOSINOPHILS % (AUTO) 0.6 % (0-6); HEMATOCRIT 36.2 % (36.0-47.0); HEMOGLOBIN 12.3 g/dL (12.0-15.5); LYMPHOCYTES % (AUTO) 27.8 % (13-45); MEAN CORPUSCULAR HEMOGLOBIN 27.8 pg (27.0-33.4); MEAN CORPUSCULAR HGB CONC 33.9 g/dL (32.0-36.0); MEAN CORPUSCULAR VOLUME 82 fl (80-97); MONOCYTES % (AUTO) 6.1 % (3-13); PLATELET COUNT 355 10^3/uL (150-450); RED BLOOD COUNT 4.41 10^6/uL (3.72-5.28); RED CELL DISTRIBUTION WIDTH 15.8 % (11.5-14.0); SEGMENTED NEUTROPHILS % (AUTO) 65.3 % (42-78); TOTAL CELLS COUNTED % (AUTO) 100 %; WHITE BLOOD COUNT 11.2 10^3/uL (4.0-10.5)
[2018-09-12 19:05] LABS: APPEARANCE,URINE CLEAR; BILIRUBIN,URINE NEGATIVE (NEGATIVE); COLOR,URINE STRAW; GLUCOSE, URINE NEGATIVE (NEGATIVE); KETONES,URINE NEGATIVE (NEGATIVE); LEUKOCYTE ESTERASE,URINE NEGATIVE (NEGATIVE); NITRITE,URINE NEGATIVE (NEGATIVE); PROTEIN,URINE NEGATIVE (NEGATIVE); URINE SPECIFIC GRAVITY 1.004; UROBILINOGEN,URINE NEGATIVE mg/dL (<2.0)
[2018-09-12 19:15] LABS: ALANINE AMINOTRANSFERASE 23 U/L (9-52); ALBUMIN 3.9 g/dL (3.5-5.0); ALKALINE PHOSPHATASE 55 U/L (38-126); ANION GAP 10 (5-19); ASPARTATE AMINO TRANSFERASE 19 U/L (14-36); BILIRUBIN,DIRECT 0.2 mg/dL (0.0-0.4); BILIRUBIN,TOTAL 0.2 mg/dL (0.2-1.3); BLOOD UREA NITROGEN 8 mg/dL (7-20); CALCIUM 9.6 mg/dL (8.4-10.2); CARBON DIOXIDE 23 mmol/L (22-30); CHLORIDE 101 mmol/L (98-107); GLUCOSE 132 mg/dL (75-110); POTASSIUM 4.2 mmol/L (3.6-5.0); SODIUM 133.9 mmol/L (137-145); TOTAL PROTEIN 6.8 g/dL (6.3-8.2)
--- NOTE | 2018-09-12 21:01 | RADIOLOGY REPORT (SQ) ---
EXAM DESCRIPTION: U/S [id number] TRNABD 1GES W/ODOP COMPLETED DATE/TIME: 09/12/2018 8:35 pm REASON FOR STUDY: 12 weeks preg spotting, cramping COMPARISON: None. TECHNIQUE: Transabdominal static and realtime grayscale images acquired of the pelvis. Additional se lected spectral and color Doppler images recorded. All images stored on PACs. bHCG: Not available. CLINICAL DATES: 12 weeks LIMITATIONS: None. FINDINGS: FETUS: Single Living intrauterine . ULTRASOUND EGA: 12 weeks 2 days ULTRASOUND MILENA: 03/25/2019 EFW: Not applicable less than 20 weeks. CRL: 5.8 cm FHR: 163 beats per minute. SURVEY: No visualized anomalies. AMNIOTIC FLUID: Adequate amount. PLACENTA: Not yet developed due to early gestation. SUBCHORIONIC BLEED: No SIZE OF BLEED: Not applicable. UTERUS: No masses. No anomalies. CERVICAL LENGTH: 3 cm Closed. RIGHT ADNEXA: Ovary not identified due to poor acoustical window. No adnexal free fluid. No adnexal masses. LEFT ADNEXA: Ovary not identified due to poor acoustical window. No adnexal free fluid. No adnexal masses. FREE FLUID: None. OTHER: No other significant finding. IMPRESSION: LIVING INTRAUTERINE . EGA 12 weeks 2 days Trimester of : First - 0 to 13 weeks. TECHNICAL DOCUMENTATION: JOB ID: [id number] [place]-[id number] 2010 [employer]- All Rights Reserved rev Reading location - IP/workstation name: [employer]
--- NOTE | 2018-09-12 21:03 | ER Document Report ---
ED General - General Chief Complaint: Abdominal Cramping Stated Complaint: PELVIC CRAMPING, NAUSEA Time Seen by Provider: 09/12/18 18:24 Mode of Arrival: Ambulatory Notes: Patient is a G 8 P3 33-year-old female who presents to the emergency department with abdominal cramping. She is about 12 weeks . Her last menstrual cycle was the beginning of June. Her first visit is tomorrow morning, but has to drive out to [place] to see them. She stated that her cramping was so bad that she needed to come to the emergency department to be checked. Yesterday she also noted some pink discharge noted from her vagina. She also complains of some nausea. She has been taking Phenergan for her nausea , and has had little relief. She is refusing extra nausea medication. She wants to make sure that her baby is developing well. She also complains of constipation. She has not had a normal bowel movement since she found out she was . She has a history of C-sections in the past, has 4 living children, and had 3 abortions. TRAVEL OUTSIDE OF THE [place] IN LAST 30 DAYS: No - Related Data Allergies/Adverse Reactions: hydrocodone Allergy (Verified 09/12/18 16:32) Hives Past Medical History - General Information source: Patient - Social History Smoking Status: Never Smoker Chew tobacco use (# tins/day): No Frequency of alcohol use: None Drug Abuse: None Family History: Reviewed & Not Pertinent Patient has suicidal ideation: No Patient has homicidal ideation: No - Past Medical History Cardiac Medical History: Reports: Hx Hypertension Pulmonary Medical History: Reports: Hx Sleep Apnea Neurological Medical History: Reports: Hx Migraine. Denies: Hx Seizures Endocrine Medical History: Denies: Hx Hyperthyroidism, Hx Hypothyroidism Renal/ Medical History: Reports: Hx Ovarian Cysts. Denies: Hx Kidney Stones, Hx Peritoneal Dialysis, Hx Pelvic Inflammatory Disease Malignancy Medical History: Denies: Hx Breast Cancer, Hx Cervical Cancer, Hx Ovarian Cancer GI Medical History: Reports: Hx Gastroesophageal Reflux Disease. Denies: Hx Hiatal Hernia, Hx Ulcer Musculoskeletal Medical History: Denies Hx Fibromyalgia Traumatic Medical History: Denies: Hx Fractures Past Surgical History: Reports: Hx Section - x4 sec, Hx Cholecystectomy. Denies: Hx Hysterectomy, Hx Pacemaker - Immunizations Hx Diphtheria, Pertussis, Tetanus Vaccination: Yes Review of Systems - Review of Systems Notes: REVIEW OF SYSTEMS: CONSTITUTIONAL : Denies recent illness. Denies recent unintentional weight loss. Denies fever, chills, or sweats. EENT: Denies eye, ear, throat, or mouth pain, discharge, or symptoms. Denies nasal or sinus congestion. CARDIOVASCULAR: Denies chest pain. RESPIRATORY: Denies shortness of breath, cough, congestion, difficulty breathing, or wheezing. GASTROINTESTINAL: See HPI GENITOURINARY: Denies difficulty urinating, burning, blood in urine, urgency or frequency. FEMALE GENITOURINARY: See HPI MUSCULOSKELETAL: Denies neck and back pain. Denies joint pain or swelling. SKIN: Denies rash, itchiness, or lesions HEMATOLOGIC : Denies easy bruising or bleeding. LYMPHATIC: Denies swollen, painful, enlarged glands. NEUROLOGICAL: Denies no numbness or tingling denies weakness. Denies headache. Denies altered mental status. Denies alteration in speech. PSYCHIATRIC: Denies stress, anxiety, alteration in sleep patterns, or depression. All other systems reviewed and negative. Physical Exam - Vital signs Vitals: Temp Pulse Resp BP Pulse Ox 98.6 F 122 H 18 141/93 H 96 09/12/18 16:39 09/12/18 16:39 09/12/18 16:39 09/12/18 16:39 09/12/18 16:39 - Notes Notes: PHYSICAL EXAMINATION: GENERAL: Appears well, healthy, well-nourished, no acute distress. HEAD: Normocephalic, atraumatic. EYES: PERRL, conjunctiva normal, all extraocular movements intact, sclera nonicteric ENT: Moist mucous membranes. NECK: Supple, no noticeable swelling, redness, rash. Normal range of motion. LUNGS: Equal breath sounds bilaterally and clear to auscultation. No wheezes rales or rhonchi. CARDIOVASCULAR: S1-S2, regular rate, regular rhythm. Radial pulses 2+, normal. ABDOMEN: Normoactive bowel sounds. Soft, nontender, no guarding, no rebound tenderness, and no masses palpated. Noticeably . EXTREMITIES: Normal strength and range of motion, no pitting or edema. No cyanosis. NEUROLOGICAL: Moves all extremities upon command. Strength 5/5 in all extremities. PSYCH: Normal mood, normal affect. SKIN: Warm, dry. No rash, lesions, ulcerations noted. Normal skin turgor. Course - Re-evaluation Re-evalutation: 09/12/18 21:05 Differential diagnosis includes normal intrauterine , chorionic hemorrhage, or any other obstetric etiology. Patient's CBC shows a mild leukocytosis of 11,000, but I do not suspect any infectious etiology at this time. She is mildly hyponatremic with a serum sodium of 133. I suspect she is drinking more water than she needs to be. She also has not been eating very well because she is feeling nauseous. She states she is drinking well, but does not have a very good appetite. 09/12/18 21:32 Patient's ultrasound shows a 12-week 2-day gestation. is normal. I have shared these results with the patient. She will follow-up with her [facility] tomorrow at her normal appointment. Verbal discharge instructions were given to the patient. They verbalized understanding. They are stable for discharge. She will also be started on MiraLAX 1 capful daily and I have advised her to increase or decrease the amount until she starts having normal bowel movements. - Vital Signs Vital signs: Temp Pulse Resp BP Pulse Ox 98.6 F 122 H 18 141/93 H 96 09/12/18 16:39 09/12/18 16:39 09/12/18 16:39 09/12/18 16:39 09/12/18 16:39 - Laboratory Result Diagrams: 09/12/18 18:40 09/12/18 18:40 Laboratory results interpreted by me: 09/12/18 09/12/18 09/12/18 18:35 18:40 18:40 WBC 11.2 H RDW 15.8 H Sodium 133.9 L Glucose 132 H Beta HCG, Quant 99989.00 H Urine Blood SMALL H Urine HCG, Qual POSITIVE H Discharge - Discharge Clinical Impression: Vaginal bleeding Qualifiers: Weeks of gestation: 12 weeks Qualified Code(s): Z3A.12 - 12 weeks gestation of Condition: Stable Disposition: HOME, SELF-CARE Additional Instructions: You were seen in the emergency department today for nausea and cramping while . Your ultrasound shows a normal at this time. Please follow-up with your [facility] [facility] appointment that is scheduled for tomorrow. Let them know that you are seen here in the emergency department and had an ultrasound. The results have been provided to you. Please start 1 capful of MiraLAX daily for your constipation. You may increase or decrease the amount of MiraLAX based on your bowel movement consistency. If you develop bright red vaginal bleeding, have worsening nausea or cramping, or have any symptoms that are worrisome to you, please return to the emergency department. Referrals: SMITA BARDALES MD [Primary Care Provider] - Follow up as needed
== END 2018-09-12 21:51 | disposition home or self-care (01) ==
LOC: ER 16:32
DX: O46.91 Antepartum hemorrhage, unspecified, first trimester (principal); O16.1 Unspecified maternal hypertension, first trimester; O26.891 Other specified pregnancy related conditions, first trimester; R10.9 Unspecified abdominal pain; R10.2 Pelvic and perineal pain; R11.0 Nausea; K59.00 Constipation, unspecified; Z3A.12 12 weeks gestation of pregnancy
CPT/HCPCS: 99284; 36415; 84702; 85025; 81025; 80053; 81001; 76801; J3490

== ENCOUNTER 2018-11-11 20:10 | Emergency (ER) | payer MEDICAID ==
[2018-11-11] MEDS ORDERED: ACETAMINOPHEN 325 MG TABLET PO ONE (21:14)
[2018-11-11 21:31] LABS: ABSOLUTE LYMPHOCYTES (AUTO) 1.9 10^3/uL (0.5-4.7); ABSOLUTE MONOCYTES (AUTO) 0.5 10^3/uL (0.1-1.4); ABSOLUTE NEUT (AUTO) 6.9 10^3/uL (1.7-8.2); BASOPHILS % (AUTO) 0.1 % (0-2); EOSINOPHILS % (AUTO) 0.5 % (0-6); HEMATOCRIT 33.6 % (36.0-47.0); HEMOGLOBIN 11.2 g/dL (12.0-15.5); LYMPHOCYTES % (AUTO) 20.4 % (13-45); MEAN CORPUSCULAR HEMOGLOBIN 28.3 pg (27.0-33.4); MEAN CORPUSCULAR HGB CONC 33.4 g/dL (32.0-36.0); MEAN CORPUSCULAR VOLUME 85 fl (80-97); MONOCYTES % (AUTO) 5.8 % (3-13); PLATELET COUNT 307 10^3/uL (150-450); RED BLOOD COUNT 3.96 10^6/uL (3.72-5.28); RED CELL DISTRIBUTION WIDTH 15.6 % (11.5-14.0); SEGMENTED NEUTROPHILS % (AUTO) 73.2 % (42-78); TOTAL CELLS COUNTED % (AUTO) 100 %; WHITE BLOOD COUNT 9.4 10^3/uL (4.0-10.5)
[2018-11-11 21:34] LABS: APPEARANCE,URINE CLEAR; BILIRUBIN,URINE NEGATIVE (NEGATIVE); COLOR,URINE STRAW; GLUCOSE, URINE 50 mg/dL (NEGATIVE); KETONES,URINE TRACE mg/dL (NEGATIVE); LEUKOCYTE ESTERASE,URINE NEGATIVE (NEGATIVE); NITRITE,URINE NEGATIVE (NEGATIVE); PROTEIN,URINE NEGATIVE (NEGATIVE); URINE SPECIFIC GRAVITY 1.005; UROBILINOGEN,URINE NEGATIVE mg/dL (<2.0)
--- NOTE | 2018-11-11 21:43 | ER Document Report ---
ED Headache - General Chief Complaint: Headache Stated Complaint: /HEADACHE Time Seen by Provider: 11/11/18 20:47 Primary Care Provider: SMITA BARDALES MD [Primary Care Provider] - Follow up as needed Notes: Patient is a 33-year-old female currently 21 weeks presents to the emergency department for a generalized headache. Patient states this headache started last night and she is denying any trauma. Patient states it is in her forehead and tightness in nature 06/20. States she did take Tylenol around 1800 hrs. which she believes helps a little bit. Patient states she does have a hi story of migraines typically takes Topamax twice a day but has been unable to take it due to her . Patient states this headache feels less than her typical migraines because she is typically vomiting with migraines but she is worried that it will turn into a migraine. Patient states she does have a history of gestational diabetes. States her blood pressure has been intermittently elevated at her different [facility] appointments. States her [facility] did tell her to take a daily baby aspirin. Patient states she has no history of eclampsia or preeclampsia with her other pregnancies. States she does have a history of papillary edema with her first . Patient is currently denyi ng any vision changes or disturbances at this time. Past medical history: Spina bifida, migraines Medications: Aspirin, , vitamin D, typically Topamax but patient has stopped it due to Allergies: Hydrocodone TRAVEL OUTSIDE OF THE [place] IN LAST 30 DAYS: No - Related Data Allergies/Adverse Reactions: hydrocodone Allergy (Verified 09/12/18 16:32) Hives Past Medical History - General Information source: Patient - Social History Smoking Status: Unknown if Ever Smoked Family History: Reviewed & Not Pertinent - Past Medical History Cardiac Medical History: Reports: Hx Hypertension Pulmonary Medical History: Reports: Hx Sleep Apnea Neurological Medical History: Reports: Hx Migraine. Denies: Hx Seizures Endocrine Medical History: Denies: Hx Hyperthyroidism, Hx Hypothyroidism Renal/ Medical History: Reports: Hx Ovarian Cysts. Denies: Hx Kidney Stones, Hx Peritoneal Dialysis, Hx Pelvic Inflammatory Disease Malignancy Medical History: Denies: Hx Breast Cancer, Hx Cervical Cancer, Hx Ovarian Cancer GI Medical History: Reports: Hx Gastroesophageal Reflux Disease. Denies: Hx Hiatal Hernia, Hx Ulcer Musculoskeletal Medical History: Denies Hx Fibromyalgia Traumatic Medical History: Denies: Hx Fractures Past Surgical History: Reports: Hx Section - x4 sec, Hx Cholecystectomy. Denies: Hx Hysterectomy, Hx Pacemaker - Immunizations Hx Diphtheria, Pertussis, Tetanus Vaccination: Yes Review of Systems - Review of Systems Constitutional: No symptoms reported EENT: See HPI Cardiovascular: No symptoms reported. denies: Chest pain, Palpitations, Heart racing, Dyspnea, Syncope, Dizziness, Lightheaded Respiratory: No symptoms reported Gastrointestinal: No symptoms reported Genitourinary: No symptoms reported Female Genitourinary: See HPI, Last menstrual period - 06/18/2018 Musculoskeletal: No symptoms reported Skin: No symptoms reported Hematologic/Lymphatic: No symptoms reported Neurological/Psychological: See HPI Physical Exam - Vital signs Vitals: Temp Pulse Resp BP Pulse Ox 98.2 F 113 H 20 160/83 H 100 11/11/18 20:15 11/11/18 20:15 11/11/18 20:15 11/11/18 20:15 11/11/18 20:15 - Notes Notes: GENERAL: Alert, interacts well. No acute distress. HEAD: Normocephalic, atraumatic. EYES: Pupils equal, round, and reactive to light. Extraocular movements intact. ENT: Oral mucosa moist, tongue midline. NECK: Full range of motion. Supple. Trachea midline. LUNGS: Clear to auscultation bilaterally, no wheezes, rales, or rhonchi. No respiratory distress. HEART: Regular rate and rhythm. No murmur ABDOMEN: Obviously gravid, soft, non-tender. Non-distended. Bowel sounds present in all 4 quadrants. EXTREMITIES: Moves all 4 extremities spontaneously. No edema, normal radial and dorsalis pedis pulses bilaterally. No cyanosis. 5 out of 5 strength all 4 extremities. BACK: no cervical, thoracic, lumbar midline tenderness. No saddle anesthesia, normal distal neurovascular exam. NEUROLOGICAL: Alert and oriented x3. Normal speech. cranial nerves II through XII grossly intact PSYCH: Normal affect, normal mood. SKIN: Warm, dry, normal turgor. No rashes or lesions noted. Course - Re-evaluation Re-evalutation: 11/11/18 23:13 Patient's initial blood pressure was done on her breast size of her upper extremities. Right forearm due to this was done by an NI BP machine reading 160/83. Repeat blood pressures with manual coughs done revealing blood pressures of 110/84 and 100/62. Patient's labs do reveal a decrease in her H&H which appears to be her normal in reviewing past labs. Patient's platelet count is 307. Patient's sodium was 13 6.6, BUN minorly decreased at 6. Patient's glucose reading is 130. Patient's urine does show signs of glucose urea and positive ketones but no proteinuria. After Tylenol administration in the emergency room with IV hydration patient states her headache feels a whole lot better. 10/21. Discussed continued treatments for her due to her being . Patient wishes to deny any other medications as she does not want to "hurt the baby." Repeat BP 118 systolic. stable for d/c. - Vital Signs Vital signs: Temp Pulse Resp BP Pulse Ox 98.2 F 112 H 20 118/76 100 11/11/18 20:15 11/11/18 20:30 11/11/18 20:15 11/11/18 23:19 11/11/18 20:15 - Laboratory Result Diagrams: 11/11/18 21:18 11/11/18 21:18 Laboratory results interpreted by me: 11/11/18 11/11/18 11/11/18 21:18 21:18 21:18 Hgb 11.2 L Hct 33.6 L RDW 15.6 H Sodium 136.6 L BUN 6 L Glucose 130 H Urine Glucose (UA) 50 H Urine Ketones TRACE H Discharge - Discharge Clinical Impression: Headache Qualifiers: Headache type: other headache syndrome Qualified Code(s): G44.89 - Other headache syndrome Condition: Stable Disposition: HOME, SELF-CARE Instructions: Headache ([facility]) Additional Instructions: As we discussed you have been seen and treated in the emergency department for your generalized headache during . Your given Tylenol and rehydrated via your IV. At this point time your blood pressure is not elevated. These m maryam sure you follow-up with your primary care provider in the next 24-48 hours. Please also follow-up with [facility] in 24-48 hours. Please immediately return to the emergency room should you have any other concerning symptoms. Referrals: SMITA BARDALES MD [Primary Care Provider] - Follow up as needed
[2018-11-11 21:47] LABS: ALANINE AMINOTRANSFERASE 29 U/L (9-52); ALBUMIN 3.8 g/dL (3.5-5.0); ALKALINE PHOSPHATASE 53 U/L (38-126); ANION GAP 8 (5-19); ASPARTATE AMINO TRANSFERASE 20 U/L (14-36); BILIRUBIN,DIRECT 0.1 mg/dL (0.0-0.4); BILIRUBIN,TOTAL 0.2 mg/dL (0.2-1.3); BLOOD UREA NITROGEN 6 mg/dL (7-20); CALCIUM 10.1 mg/dL (8.4-10.2); CARBON DIOXIDE 26 mmol/L (22-30); CHLORIDE 103 mmol/L (98-107); GLUCOSE 130 mg/dL (75-110); POTASSIUM 3.9 mmol/L (3.6-5.0); SODIUM 136.6 mmol/L (137-145); TOTAL PROTEIN 6.3 g/dL (6.3-8.2)
[2018-11-11] MEDS ORDERED: RINGERS SOLUTION,LACTATED 1,000 ML IV ONE (22:35)
[2018-11-11 23:20] VITALS: BP 118/76
== END 2018-11-11 23:50 | disposition home or self-care (01) ==
LOC: ER 20:10
DX: O99.352 Diseases of the nervous system complicating pregnancy, second trimester (principal); G44.89 Other headache syndrome; O16.2 Unspecified maternal hypertension, second trimester; Z3A.21 21 weeks gestation of pregnancy; Z86.32 Personal history of gestational diabetes; Z79.82 Long term (current) use of aspirin; Z79.899 Other long term (current) drug therapy; Z88.5 Allergy status to narcotic agent
CPT/HCPCS: 99283; 96360; 36415; 85025; 80053; 81001; J3490; J7120

== ENCOUNTER 2019-01-17 23:55 | Outpatient (CLI) | payer MEDICAID ==
[2019-01-18 00:24] LABS: APPEARANCE,URINE CLEAR; BILIRUBIN,URINE NEGATIVE (NEGATIVE); COLOR,URINE STRAW; GLUCOSE, URINE NEGATIVE (NEGATIVE); KETONES,URINE 20 mg/dL (NEGATIVE); LEUKOCYTE ESTERASE,URINE NEGATIVE (NEGATIVE); NITRITE,URINE NEGATIVE (NEGATIVE); PROTEIN,URINE NEGATIVE (NEGATIVE); URINE SPECIFIC GRAVITY 1.003; UROBILINOGEN,URINE NEGATIVE mg/dL (<2.0)
[2019-01-18 00:36] LABS: URINE AMPHETAMINES SCREEN NEGATIVE; URINE BARBITURATES SCREEN NEGATIVE; URINE BENZODIAZEPINES SCREEN NEGATIVE; URINE COCAINE SCREEN NEGATIVE; URINE MARIJUANA (THC) SCREEN NEGATIVE; URINE METHADONE SCREEN NEGATIVE; URINE PHENCYCLIDINE SCREEN NEGATIVE
== END 2019-01-18 01:00 | disposition home or self-care (01) ==
LOC: LC 23:55
PROVIDERS: ATTEND Obstetrics & Gynecology
PROC: 4A1HXCZ Monitoring of Products of Conception, Cardiac Rate, External Approach (ICD-10-PCS; principal; 2019-01-17)
DX: O47.03 False labor before 37 completed weeks of gestation, third trimester (principal); Z3A.30 30 weeks gestation of pregnancy
CPT/HCPCS: 80307; 81001; 84112

== ENCOUNTER 2019-02-17 10:27 | Outpatient (CLI) | payer MEDICAID ==
[2019-02-17 11:13] LABS: APPEARANCE,URINE SLIGHTLY-CLOUDY; BILIRUBIN,URINE NEGATIVE (NEGATIVE); COLOR,URINE YELLOW; GLUCOSE, URINE 150 mg/dL (NEGATIVE); KETONES,URINE TRACE mg/dL (NEGATIVE); LEUKOCYTE ESTERASE,URINE NEGATIVE (NEGATIVE); NITRITE,URINE NEGATIVE (NEGATIVE); PROTEIN,URINE 100 mg/dL (NEGATIVE); URINE SPECIFIC GRAVITY 1.016; UROBILINOGEN,URINE NEGATIVE mg/dL (<2.0)
[2019-02-17 11:18] LABS: URINE AMPHETAMINES SCREEN NEGATIVE; URINE BARBITURATES SCREEN NEGATIVE; URINE BENZODIAZEPINES SCREEN NEGATIVE; URINE COCAINE SCREEN NEGATIVE; URINE MARIJUANA (THC) SCREEN NEGATIVE; URINE METHADONE SCREEN NEGATIVE; URINE PHENCYCLIDINE SCREEN NEGATIVE
[2019-02-17] MEDS ORDERED: HYDROXYZINE PAMOATE 50 MG CAPSULE PO ONE (11:29)
[2019-02-17] MEDS ORDERED: HYDROXYZINE PAMOATE 50 MG CAPSULE ONE (11:32)
[2019-02-17] MEDS ORDERED: RINGERS SOLUTION,LACTATED 1,000 ML IV PRN (11:42)
[2019-02-17] MEDS ORDERED: NIFEDIPINE 10 MG CAPSULE PO ONE (12:46)
[2019-02-17] MEDS ORDERED: NIFEDIPINE 10 MG CAPSULE ONE (12:54)
--- NOTE | 2019-02-17 13:18 | Non Stress Test Report ---
Non Stress Test Datetime Report Generated by CPN: 02/17/2019 13:17 DEMOGRAPHIC EGA NST: 34.6 EGA NST: 30.4 INDICATION Indication for Study: Other Indication for Study: Other Indication for Study (NST) Other: LABOR CHECK Indication for Study (NST) Other: r/o PROM, LC URINE RESULTS Urine Blood - NST: Negative MONITORING Monitor Explained: Monitor Explained; Test Explained; Patient Verbalized Understanding Monitor Explained: Monitor Explained; Test Explained; Patient Verbalized Understanding Time on Monitor: 02/17/2019 12:27 Time on Monitor: 01/18/2019 00:15 Time off Monitor: 02/17/2019 12:57 NST Duration: 30 NST INTERVENTIONS NST Interventions: PO Hydration; IV Fluids; Reposition Patient NST Interventions: PO Hydration Physician Notified NST: DrMonica Rebolledo Physician Notified NST: Ramey BABY A: [id number] BABY A Movement : Present Contraction Frequency : 2-4 FHR Baseline : 140 Accelerations : 15X15 Decelerations : None Variability : Moderate 6-25bpm NST Review: Meets Criteria for Reactive NST NST Review: Meets Criteria for Reactive NST NST Review and Verified By : Anjum Busby RN NST Results: Reactive NST REPORT Report Trigger: Send Report
== END 2019-02-17 13:48 | disposition home or self-care (01) ==
LOC: LC 10:27
PROVIDERS: ATTEND Obstetrics & Gynecology
DX: O47.03 False labor before 37 completed weeks of gestation, third trimester (principal); O24.419 Gestational diabetes mellitus in pregnancy, unspecified control
CPT/HCPCS: 80307; 81001; 82962; 84112; J3490

== ENCOUNTER → 2020-01-21 | Outpatient (CLI) | payer MEDICAID ==
--- NOTE | 2020-01-21 13:38 | RADIOLOGY REPORT (SQ) ---
EXAM DESCRIPTION: KUB IMAGES COMPLETED DATE/TIME: 01/21/2020 1:26 pm REASON FOR STUDY: ABDOMINAL PAIN R10.9 UNSPECIFIED ABDOMINAL PAIN COMPARISON: None. NUMBER OF VIEWS: One view. TECHNIQUE: Supine radiographic image of the abdomen acquired. LIMITATIONS: None. FINDINGS: BOWEL GAS PATTERN: Gas pattern is nonobstructive. There is large amount of stool througho ut the colon consistent with constipation. CALCIFICATIONS: No suspicious calcifications. SOFT TISSUES: No gross mass or suggestion of organomegaly. HARDWARE: None in the abdomen. BONES: No acute fracture. No worrisome bone lesions. OTHER: No other significant finding. IMPRESSION: Constipation. No obstruction. TECHNICAL DOCUMENTATION: JOB ID: [id number] 2010 [employer]- All Rights Reserved Reading location - IP/workstation name: [email or web address]
== END ==
LOC: RAD 12:09
PROVIDERS: ATTEND Pediatrics
DX: R10.9 Unspecified abdominal pain (principal)
CPT/HCPCS: 74018

== ENCOUNTER 2020-10-05 23:25 | Emergency (ER) | payer MEDICAID ==
--- NOTE | 2020-10-06 00:02 | ER Document Report ---
ED Medical Screen (RME) - General Chief Complaint: High Blood Pressure Stated Complaint: BLOOD PRESSURE ISSUES Time Seen by Provider: 10/05/20 23:54 Primary Care Provider: JUAN MAURO MD [Primary Care Provider] - Follow up as needed Mode of Arrival: Ambulatory Information source: Patient Notes: HPI; 35-year-old female presents to the emergency room with concerns for palpitations and elevated blood pressures over the past 2 days. Patient with a known history of hypertension currently on hydrochlorothiazide. Patient does not monitor her blood pressures at home. States she saw her primary care physician her blood pressure was 156/96. States they did send in a prescription for new medication that she supposed to start tomorrow. States she felt like her palpitations are getting worse tonight. Does not have a blood pressure cuff at home to check her blood pressures. She denies any chest pain, shortness of breath, no difficulty breathing. Currently breast-feeding. Denies PE: Alert and oriented x3. Lungs: Clear to auscultation without rales, rhonchi, wheezes. Heart: Tachycardic without murmurs, rubs, gallops. I have greeted and performed a rapid initial assessment of this patient. A comprehensive ED assessment and evaluation of the patient, analysis of test results and completion of the medical decision making process will be conducted by additional ED providers. I have specifically instructed the patient or family members with the patient to immediately return to any nursing staff should anything change in the patient's condition or with their chief complaint. TRAVEL OUTSIDE OF THE [place] IN LAST 30 DAYS: No - Related Data Allergies/Adverse Reactions: hydrocodone Allergy (Verified 10/05/20 23:54) Hives macadamia nut oil Adverse Reaction (Verified 10/05/20 23:54) Home Medications: HCTZ Past Medical History - Social History Frequency of alcohol use: None Drug Abuse: None - Past Medical History Cardiac Medical History: Reports: Hx Hypertension Pulmonary Medical History: Reports: Hx Sleep Apnea Neurological Medical History: Reports: Hx Migraine. Denies: Hx Seizures Endocrine Medical History: Denies: Hx Hyperthyroidism, Hx Hypothyroidism Renal/ Medical History: Reports: Hx Ovarian Cysts. Denies: Hx Kidney Stones, Hx Peritoneal Dialysis, Hx Pelvic Inflammatory Disease Malignancy Medical History: Denies: Hx Breast Cancer, Hx Cervical Cancer, Hx Ov luz Cancer GI Medical History: Reports: Hx Gastroesophageal Reflux Disease. Denies: Hx Hiatal Hernia, Hx Ulcer Musculoskeltal Medical History: Denies Hx Fibromyalgia Traumatic Medical History: Denies: Hx Fractures Past Surgical History: Reports: Hx Section - x4 sec, Hx Cholecystectomy. Denies: Hx Hysterectomy, Hx Pacemaker - Immunizations Hx Diphtheria, Pertussis, Tetanus Vaccination: Yes Physical Exam - Vital signs Vitals: Temp Pulse Resp BP Pulse Ox 98.6 F 115 H 18 146/97 H 96 10/05/20 23:32 10/05/20 23:32 10/05/20 23:32 10/05/20 23:32 10/05/20 23:32 Course - Vital Signs Vital signs: Temp Pulse Resp BP Pulse Ox 98.6 F 115 H 18 146/97 H 96 10/05/20 23:32 10/05/20 23:32 10/05/20 23:32 10/05/20 23:32 10/05/20 23:32 Doctor's Discharge - Discharge Referrals: JUAN MAURO MD [Primary Care Provider] - Follow up as needed
[2020-10-06 00:35] LABS: MEAN CORPUSCULAR VOLUME 82 fl (80-97)
[2020-10-06 00:41] LABS: ABSOLUTE BASOPHILS # (AUTO) 0.1 10^3/uL (0.0-0.2); ABSOLUTE LYMPHOCYTES (AUTO) 3.6 10^3/uL (0.5-4.7); ABSOLUTE MONOCYTES (AUTO) 0.5 10^3/uL (0.1-1.4); BASOPHILS % (AUTO) 0.6 % (0-2); EOSINOPHILS % (AUTO) 0.3 % (0-6); HEMATOCRIT 39.1 % (36.0-47.0); HEMOGLOBIN 12.7 g/dL (12.0-15.5); LYMPHOCYTES % (AUTO) 34.9 % (13-45); MEAN CORPUSCULAR HEMOGLOBIN 26.7 pg (27.0-33.4); MEAN CORPUSCULAR HGB CONC 32.5 g/dL (32.0-36.0); MONOCYTES % (AUTO) 5.4 % (3-13); PLATELET COUNT 406 10^3/uL (150-450); RED BLOOD COUNT 4.76 10^6/uL (3.72-5.28); RED CELL DISTRIBUTION WIDTH 14.2 % (11.5-14.0); SEGMENTED NEUTROPHILS % (AUTO) 58.8 % (42-78); TOTAL CELLS COUNTED % (AUTO) 100 %; WHITE BLOOD COUNT 10.2 10^3/uL (4.0-10.5)
[2020-10-06 00:48] LABS: ALBUMIN 4.8 g/dL (3.5-5.0); ALKALINE PHOSPHATASE 71 U/L (38-126); ANION GAP 11 (5-19); ASPARTATE AMINO TRANSFERASE 27 U/L (14-36); BILIRUBIN,DIRECT 0.3 mg/dL (0.0-0.4); BILIRUBIN,TOTAL 0.3 mg/dL (0.2-1.3); BLOOD UREA NITROGEN 7 mg/dL (7-20); CALCIUM 10.7 mg/dL (8.4-10.2); CARBON DIOXIDE 25 mmol/L (22-30); CHLORIDE 100 mmol/L (98-107); GLUCOSE 157 mg/dL (75-110); POTASSIUM 4.9 mmol/L (3.6-5.0); TOTAL PROTEIN 7.8 g/dL (6.3-8.2)
--- NOTE | 2020-10-06 01:12 | RADIOLOGY REPORT (SQ) ---
EXAM: CHEST 2 VIEWS CLINICAL INDICATION: 35-year-old female with palpitations. TECHNIQUE: Two-view, PA and lateral projections of the chest were obtained. COMPARISON: None. FINDINGS: Unremarkable cardiac and mediastinal silhouette. Heart size is normal. Lungs are clear without focal opacity, pneumothorax or pleural effusions. The visualized bones are within normal limits. IMPRESSION: No acute cardiopulmonary abnormalities.
[2020-10-06 04:00] VITALS: BP 146/85
--- NOTE | 2020-10-06 04:07 | ER Document Report ---
ED Blood Pressure Problem - General Chief Complaint: High Blood Pressure Stated Complaint: BLOOD PRESSURE ISSUES Time Seen by Provider: 10/05/20 23:54 Primary Care Provider: JUAN MAURO MD [NO LOCAL MD] - Follow up as needed Mode of Arrival: Ambulatory Information source: Patient Notes: 35-year-old female presented to ED for complaint of palpitations elevated blood pressure over the last 2 days. She states she has a history of high blood pressure but has not been taking her medications properly. She has not been monitoring her blood pressure properly. She saw her primary care doctor and her blood pressure was 156/96. She states that the primary care doctor did send in a prescription for the medication and told her to follow-up tomorrow to have fasting blood work. She states she felt palpitations worse tonight so she became concerned and came to the emergency room. She said she did buy herself a blood pressure cuff so she will be able to take it at home and will have the doctor show her how to use the blood pressure cuff. She states she is breast- feeding and was concerned about taking the hydrochlorothiazide. She stated her baby was over 2 years old and I explained to her that at this point that it is more important for her to take care of herself and to continue breast-feeding the baby because high blood pressure can cause a lot of serious side effects to include . She stated she agreed with that and she would wean the baby and take her medications as prescribed. She states she has been using the hydrochlorothiazide as she would Tylenol if she had a headache she took the medicine and not all the time. I told her blood pressure medications had to be taken as prescribed. Her blood sugar was also elevated. She states she was told she had borderline diabetes. I told her that there with a blood sugar of 150 was more than borderline and to be sure they did fasting blood glucose as well. She states that they did plan to do glucose as well. I did give her a copy of all the labs and told her to please take all these with her to her follow-up appointment so that they would have these to compare with the labs I draw. I have given patient written instructions concerning all of this and I am discharging her home. Constitutional: Negative for fever. HENT: Negative for sore throat. Eyes: Negative for visual changes. Cardiovascular: Negative for chest pain. Respiratory: Negative for shortness of breath. Gastrointestinal: Negative for abdominal pain, vomiting or diarrhea. Genitourinary: Negative for dysuria. Musculoskeletal: Negative for back pain. Skin: Negative for rash. Neurological: Negative for headaches, weakness or numbness. 10 point ROS negative except as marked above and in HPI. VITAL SIGNS: Blood pressure 146/85, pulse 94, O2 sat 97% on room air, temperature 98.7. I took these vital signs myself. GENERAL: No acute distress, non-toxic appearance. HEAD: Normal with no signs of head trauma. EYES: PERRLA, EOMI, conjunctiva normal, no discharge. EARS: Hearing grossly intact. NOSE: Normal. THROAT: Oropharynx is normal. NECK: Normal range of motion, no tenderness, supple, no lymphadenopathy, No adenopathy, no JVD. CHEST: Clear breath sounds bilaterally. No wheezes, rales, or rhonchi. CARDIAC: Regular rate and rhythm. S1 and S2, without murmurs, gallops, or rub s. VASCULAR: No Edema. Peripheral pulses normal and equal in all extremities. ABDOMEN: Normal and soft with no tenderness, no masses or pulsatile masses. GASTROINTESTINAL: Bowel sounds normal GENITOURINARY: Normal, No tenderness LYMPATHTIC: No lymphadenopathy noted. MUSCULOSKELETAL: Good range of motion of all major joints. Extremities without clubbing, cyanosis or edema. NEUROLOGICAL: Alert and oriented x 3. No focal sensory or strength deficits. Speech normal. Follows commands appropriately. PSYCHIATRIC: Normal Affect, judgement and mood. SKIN: Normal appearance with no rashes or lesions. TRAVEL OUTSIDE OF THE [place] IN LAST 30 DAYS: No - HPI Patient complains to provider of: High blood pressure, Other - Elevated blood sugar Onset: Other - Chronic Onset/Duration: Persistent Quality of pain: No pain Severity: None Pain Level: Denies Problem is: Chronic problem Pt currently taking medication for problem: Yes - She states she has not been taking it as prescribed but she will now Associated symptoms: Other - Palpitations more so when she becomes anxious Similar symptoms previously: Yes Recently seen / treated by doctor: Yes - Related Data Allergies/Adverse Reactions: hydrocodone Allergy (Verified 10/05/20 23:54) Hives macadamia nut oil Adverse Reaction (Verified 10/05/20 23:54) Home Medications: HCTZ Past Medical History - General Information source: Patient - Social History Smoking Status: Never Smoker Frequency of alcohol use: None Drug Abuse: None Lives with: Family Family History: Reviewed & Not Pertinent Patient has suicidal ideation: No Patient has homicidal ideation: No - Past Medical History Cardiac Medical History: Reports: Hx Hypertension Pulmonary Medical History: Reports: Hx Sleep Apnea EENT Medical History: Reports: None Neurological Medical History: Reports: Hx Migraine Endocrine Medical History: Reports: Hx Diabetes Mellitus Type 2 Renal/ Medical History: Reports: Hx Ovarian Cysts Malignancy Medical History: Reports: None GI Medical History: Reports: Hx Gastroesophageal Reflux Disease Musculoskeletal Medical History: Reports None Skin Medical History: Reports None Psychiatric Medical History: Reports: None Traumatic Medical History: Reports: None Infectious Medical History: Reports: None Past Surgical History: Reports: Hx Section - x5, Hx Cholecystectomy - Immunizations Hx Diphtheria, Pertussis, Tetanus Vaccination: Yes Physical Exam - Vital signs Vitals: Temp Pulse Resp BP Pulse Ox 98.6 F 115 H 18 146/97 H 96 10/05/20 23:32 10/05/20 23:32 10/05/20 23:32 10/05/20 23:32 10/05/20 23:32 Course - Vital Signs Vital signs: Temp Pulse Resp BP Pulse Ox 98.7 F 94 18 146/85 H 97 10/06/20 04:03 10/06/20 04:03 10/06/20 02:01 10/06/20 04:03 10/06/20 04:03 - Laboratory Results Result Diagrams: 10/06/20 00:16 10/06/20 00:16 Laboratory Results Interpreted: 10/06/20 10/06/20 00:16 00:16 MCH 26.7 L RDW 14.2 H Sodium 135.5 L Glucose 157 H Calcium 10.7 H Critical Laboratory Results Reviewed: No Critical Results - Radiology Results Critical Radiology Results Reviewed: No Critical Results Discharge - Discharge Clinical Impression: Elevated blood sugar High blood pressure Qualifiers: Hypertension type: unspecified Qualified Code(s): I10 - Essential (primary) hypertension Condition: Stable Disposition: HOME, SELF-CARE Additional Instructions: HIGH BLOOD PRESSURE REQUIRING TREATMENT: Your blood pressure is high. This is called "hypertension." Today's reading was ____146/97 (normal is less than 140/90). Your history and exam suggest that this is not a temporary problem. You need treatment of your blood pressure. If left untreated, high blood pressure greatly increases your risk of heart attack and stroke. Please don't ignore this problem. If you have blood pressure medicine but aren't using it regularly, start taking it again. Some simple things you can do to help are: Get some aerobic exercise for at least 20 minutes on a daily basis. (See your doctor before beginning any new exercise program.) Eat a low-fat diet. Lose excess weight. Avoid salty foods and avoid adding salt to any of the foods you eat. Avoid diet pills, decongestants, "energizing" herbs, and other medicines that elevate blood pressure. There are many different medicines that treat blood pressure. If your medication causes unpleasant side effects, call your doctor. There are others you can try. Treating hypertension is a life-long investment in your health. HYPERGLYCEMIA (HIGH BLOOD SUGAR): You have an abnormally high blood sugar. Not all high blood sugar requires long-term treatment. High blood sugar can be due to medications, , or the stress of illness. (These cases are "borderline diabetes.") If the doctor feels your high blood sugar might resolve with time, you may not require treatment now. It's very important that you follow through, to see if the blood sugar returns to normal levels. Uncontrolled high blood sugar leads to early heart disease, strokes, nerve damage, eye damage, and kidney damage. Call the physician if there is faintness, excess sleepiness, or very rapid breathing. HYDROCHLOROTHIAZIDE: Hydrochlorothiazide is a diuretic medication. Diuretics are often called "water pills." The medicine flushes excess salt and water from the body. Diuretics are used for fluid retention (such as heart failure, cirrhosis, or lung disease) and for blood pressure control. Often hydrochlorothiazide is combined with other medicines in the same pill. Most patients prefer to take the medicine in the morning. Hydrochlorothiazide makes extra urine, which can be a problem if you take the pill at night. Diuretics make you lose potassium. Sometimes a good diet with plenty of fruit is enough to replace it. Sometimes a potassium supplement is necessary. Or, hydrochlorothiazide may be combined with medicines that prevent potassium loss. We usually recommend a blood potassium test in a few weeks. Contact your doctor if you develop extreme fatigue, muscle weakness, lethargy, confusion, or palpitations. Continue taking your hydrochlorothiazide as prescribed. Please follow-up with the primary doctor as you were instructed and get your fasting labs in the morning. Given you a copy of your x-ray and your labs from the ED to take with you to your appointment in the morning. Your blood pressure just before discharge was 146/85 your O2 sat was 99 and your pulse was 94. Please give that to your primary doctor when you see her in the morning as well. These do not eat or drink anything before seeing your doctor so they can do your fasting blood. FOLLOW-UP CARE: If you have been referred to a physician for follow-up care, call the physicians office for an appointment as you were instructed or within the next two days. If you experience worsening or a significant change in your symptoms, notify the physician immediately or return to the Emergency Department at any time for re-evaluation. Forms: Elevated Blood Pressure Referrals: JUAN MAURO MD [NO LOCAL MD] - Follow up as needed
--- NOTE | 2020-10-06 09:28 | EKG REPORT ---
SEVERITY:- ABNORMAL ECG - SINUS TACHYCARDIA LEFT VENTRICULAR HYPERTROPHY : Confirmed by: Billy Dai MD 06-Oct-2020 09:26:41
== END 2020-10-06 04:21 | disposition home or self-care (01) ==
LOC: ER 23:25
DX: I10 Essential (primary) hypertension (principal); T50.2X6A Underdosing of carbonic-anhydrase inhibitors, benzothiadiazides and other diuretics, initial encounter; Z91.128 Patient's intentional underdosing of medication regimen for other reason; Z91.14 Patient's other noncompliance with medication regimen; R73.9 Hyperglycemia, unspecified; R00.2 Palpitations; Z88.6 Allergy status to analgesic agent; Z88.5 Allergy status to narcotic agent
CPT/HCPCS: 36415; 71046; 80053; 84443; 84484; 85025; 93005; 93010; 99285

== ENCOUNTER 2020-10-07 20:40 | Emergency (ER) | payer MEDICAID ==
--- NOTE | 2020-10-07 21:03 | ER Document Report ---
ED Medical Screen (RME) - General Stated Complaint: WEAKNESS Time Seen by Provider: 10/07/20 20:51 Primary Care Provider: SMITA BARDALES MD [Primary Care Provider] - Follow up as needed Notes: Patient presents complaining of muscle spasms that started yesterday. Patient states that she has been increasing oral intake and has been taking multiple supplements and she thinks she may have overdone it and caused her to have these muscle spasms. Patient did see her primary doctor earlier today. Patient does report some mild headache. Patient denies any chest pain or shortness of breath. Patient has underlying history of hypertension. Patient was started on propanolol in addition to her HCTZ although has not had a dose of the propranolol today. I have greeted and performed a rapid initial assessment of this patient. A comprehensive ED assessment and evaluation of the patient, analysis of test results and completion of the medical decision making process will be conducted by additional ED providers. TRAVEL OUTSIDE OF THE [place] IN LAST 30 DAYS: No - Related Data Allergies/Adverse Reactions: hydrocodone Allergy (Verified 10/05/20 23:54) Hives macadamia nut oil Adverse Reaction (Verified 10/05/20 23:54) Past Medical History - Past Medical History Cardiac Medical History: Reports: Hx Hypertension Pulmonary Medical History: Reports: Hx Sleep Apnea Neurological Medical History: Reports: Hx Migraine. Denies: Hx Seizures Endocrine Medical History: Reports: Hx Diabetes Mellitus Type 2. Denies: Hx Hyperthyroidism, Hx Hypothyroidism Renal/ Medical History: Reports: Hx Ovarian Cysts. Denies: Hx Kidney Stones, Hx Peritoneal Dialysis, Hx Pelvic Inflammatory Disease Malignancy Medical History: Denies: Hx Breast Cancer, Hx Cervical Cancer, Hx Ovarian Cancer GI Medical History: Reports: Hx Gastroesophageal Reflux Disease. Denies: Hx Hiatal Hernia, Hx Ulcer Musculoskeltal Medical History: Denies Hx Fibromyalgia Traumatic Medical History: Denies: Hx Fractures Past Surgical History: Reports: Hx Section - x5, Hx Cholecystectomy. Denies: Hx Hysterectomy, Hx Pacemaker - Immunizations Hx Diphtheria, Pertussis, Tetanus Vaccination: Yes Physical Exam - Vital signs Vitals: Temp Pulse Resp BP Pulse Ox 98.2 F 117 H 20 163/105 H 97 10/07/20 20:43 10/07/20 20:43 10/07/20 20:43 10/07/20 20:43 10/07/20 20:43 - Respiratory Respiratory status: No respiratory distress - Cardiovascular Rhythm: Tachycardia Heart sounds: S1 appreciated, S2 appreciated Course - Re-evaluation Re-evalutation: 10/07/20 21:03 Patient encouraged to take her evening dose of the propanolol to help with her tachycardia and elevated blood pressure reading at this time. - Vital Signs Vital signs: Temp Pulse Resp BP Pulse Ox 98.2 F 117 H 20 163/105 H 97 10/07/20 20:43 10/07/20 20:43 10/07/20 20:43 10/07/20 20:43 10/07/20 20:43 Doctor's Discharge - Discharge Referrals: SMITA BARDALES MD [Primary Care Provider] - Follow up as needed
[2020-10-07 21:49] LABS: ABSOLUTE LYMPHOCYTES (AUTO) 3.9 10^3/uL (0.5-4.7); ABSOLUTE MONOCYTES (AUTO) 0.7 10^3/uL (0.1-1.4); ABSOLUTE NEUT (AUTO) 5.7 10^3/uL (1.7-8.2); BASOPHILS % (AUTO) 0.5 % (0-2); EOSINOPHILS % (AUTO) 0.4 % (0-6); HEMATOCRIT 39.1 % (36.0-47.0); HEMOGLOBIN 12.9 g/dL (12.0-15.5); LYMPHOCYTES % (AUTO) 37.9 % (13-45); MEAN CORPUSCULAR HEMOGLOBIN 26.9 pg (27.0-33.4); MEAN CORPUSCULAR HGB CONC 32.9 g/dL (32.0-36.0); MEAN CORPUSCULAR VOLUME 82 fl (80-97); MONOCYTES % (AUTO) 6.3 % (3-13); PLATELET COUNT 425 10^3/uL (150-450); RED BLOOD COUNT 4.78 10^6/uL (3.72-5.28); RED CELL DISTRIBUTION WIDTH 14.4 % (11.5-14.0); SEGMENTED NEUTROPHILS % (AUTO) 54.9 % (42-78); TOTAL CELLS COUNTED % (AUTO) 100 %; WHITE BLOOD COUNT 10.4 10^3/uL (4.0-10.5)
[2020-10-07 22:05] LABS: ALBUMIN 4.9 g/dL (3.5-5.0); ALKALINE PHOSPHATASE 76 U/L (38-126); ANION GAP 11 (5-19); ASPARTATE AMINO TRANSFERASE 29 U/L (14-36); BILIRUBIN,DIRECT 0.3 mg/dL (0.0-0.4); BILIRUBIN,TOTAL 0.5 mg/dL (0.2-1.3); BLOOD UREA NITROGEN 10 mg/dL (7-20); CALCIUM 9.9 mg/dL (8.4-10.2); CARBON DIOXIDE 28 mmol/L (22-30); CHLORIDE 96 mmol/L (98-107); GLUCOSE 142 mg/dL (75-110); POTASSIUM 4.5 mmol/L (3.6-5.0); TOTAL PROTEIN 7.8 g/dL (6.3-8.2)
--- NOTE | 2020-10-08 00:39 | ER Document Report ---
ED General - General Chief Complaint: Tremor Stated Complaint: WEAKNESS Time Seen by Provider: 10/07/20 20:51 Primary Care Provider: SMITA BARDALES MD [Primary Care Provider] - Follow up as needed TRAVEL OUTSIDE OF THE [place] IN LAST 30 DAYS: No - HPI Notes: 35-year-old female presents with sensation of muscle spasms. Patient states that she will randomly feel a jerking sensation in her right arm and right foot. She states that this has been happening for the past couple of days, however usually only happens when she is going to sleep. Occurred during the daytime today. Patient states that she did see her primary care doctor today. She has a history of high blood pressure, she currently has been taking hydrochlorothiazide 25 mg, she was started on propanolol 20 mg twice daily. She did actually take her first dose while in the emergency department tonight after her triage. Patient reports that overall she is feeling better, and now is just sleepy. Notes that she has not been sleeping well for the past couple of nights. She feels stressed. Patient also reports having high blood pressure and high heart rate for the past 2 days. 2 days ago she doubled her dose of hydrochlorothiazide and had increased thirst and dry throat. She states that she was told by her PCP to drink Pedialyte and water. She drank multiple bottles of each of these which did not improve her symptoms as well. The triage note mentions vitamin supplementation. Patient ports that she is taking vitamin D, iron and a vitamin. She is still breast-feeding, her daughter is 1 year old. Patient also expresses concern that she will see redness in her eyes and is concerned may be she has allergies, she denies drug or alcohol use, expresses concern may be she needs to start using an eyedrop. - Related Data Allergies/Adverse Reactions: hydrocodone Allergy (Verified 10/07/20 21:47) Hives macadamia nut oil Adverse Reaction (Verified 10/07/20 21:47) Past Medical History - General Information source: Patient - Social History Smoking Status: Never Smoker Frequency of alcohol use: None Drug Abuse: None Family History: Reviewed & Not Pertinent - Past Medical History Cardiac Medical History: Reports: Hx Hypertension Pulmonary Medical History: Reports: Hx Sleep Apnea Neurological Medical History: Reports: Hx Migraine. Denies: Hx Seizures Endocrine Medical History: Reports: Hx Diabetes Mellitus Type 2. Denies: Hx Hyperthyroidism, Hx Hypothyroidism Renal/ Medical History: Reports: Hx Ovarian Cysts. Denies: Hx Kidney Stones, Hx Peritoneal Dialysis, Hx Pelvic Inflammatory Disease Malignancy Medical History: Denies: Hx Breast Cancer, Hx Cervical Cancer, Hx Ovarian Cancer GI Medical History: Reports: Hx Gastroesophageal Reflux Disease. Denies: Hx Hiatal Hernia, Hx Ulcer Musculoskeletal Medical History: Denies Hx Fibromyalgia Traumatic Medical History: Denies: Hx Fractures Past Surgical History: Reports: Hx Section - x5, Hx Cholecystectomy. Denies: Hx Hysterectomy, Hx Pacemaker - Immunizations Hx Diphtheria, Pertussis, Tetanus Vaccination: Yes Review of Systems - Review of Systems Constitutional: No symptoms reported EENT: See HPI Cardiovascular: denies: Chest pain Respiratory: denies: Short of breath Gastrointestinal: No symptoms reported Genitourinary: No symptoms reported Female Genitourinary: No symptoms reported Musculoskeletal: See HPI Skin: No symptoms reported Hematologic/Lymphatic: No symptoms reported Neurological/Psychological: No symptoms reported Physical Exam - Vital signs Vitals: Temp Pulse Resp BP Pulse Ox 98.2 F 117 H 20 163/105 H 97 10/07/20 20:43 10/07/20 20:43 10/07/20 20:43 10/07/20 20:43 10/07/20 20:43 - General General appearance: Appears well, Alert In distress: None - HEENT Head: Normocephalic, Atraumatic Conjunctiva: No: Injected Extraocular movements intact: Yes Pupils: PERRL - Respiratory Breath sounds: Normal - Cardiovascular Rhythm: Regular Heart sounds: Normal auscultation - Abdominal Inspection: Obese Tenderness: Nontender - Extremities General upper extremity: Normal ROM General lower extremity: Normal ROM. No: Edema - Neurological Neuro grossly intact: Yes Cognition: Normal Orientation: AAOx4 - Psychological Associated symptoms: Normal affect - Skin Skin Temperature: Warm Course - Re-evaluation Re-evalutation: 35-year-old female presents with sensation of muscle spasms, present for the past few days, mostly at night when trying to sleep. On exam there is no obvious muscle spasm occurring, she has intact range of motion. No gross focal neuro deficits. Discussed with her potentially this is stress related. On arrival to the emergency department, patient was hypertensive and tachycardic, she did take a dose of propanolol, her vital signs have now normalized with blood pressure 134/86 and is no longer tachycardic. I discussed with her importance of taking her medications as prescribed by her primary care doctor. She had a laboratory evaluation done through triage which is grossly unremarka ble. I discussed with her that there are no major electrolyte abnormalities, thyroid function is normal, no anemia. Discussed with patient to have follow-up with her primary care doctor to have her labs rechecked next week. Return precautions given, stable at time of discharge. - Vital Signs Vital signs: Temp Pulse Resp BP Pulse Ox 98.2 F 117 H 20 163/105 H 97 10/07/20 20:43 10/07/20 20:43 10/07/20 20:43 10/07/20 20:43 10/07/20 20:43 - Laboratory Results Result Diagrams: 10/07/20 21:20 10/07/20 21:20 Laboratory Results Interpreted: 10/07/20 10/07/20 21:20 21:20 MCH 26.9 L RDW 14.4 H Sodium 135.3 L Chloride 96 L Glucose 142 H Critical Laboratory Results Reviewed: No Critical Results - Radiology Results Critical Radiology Results Reviewed: No Critical Results - EKG Interpretation by Me Additional EKG results interpreted by me: EKG is interpreted by me. Sinus tachycardia, rate 116. Narrow QRS, QTC within normal limits. No ST segment elevation or depression. Discharge - Discharge Clinical Impression: Essential hypertension Disposition: HOME, SELF-CARE Additional Instructions: Please continue all medications as prescribed. Please have follow-up with your primary care doctor next week, discuss having repeat labs to assure that all your electrolytes remain good. Return to the emergency department for any concerning worsening symptoms. Referrals: SMITA BARDALES MD [Primary Care Provider] - Follow up as needed
[2020-10-08 01:09] VITALS: BP 134/86
--- NOTE | 2020-10-08 15:05 | EKG REPORT ---
SEVERITY:- ABNORMAL ECG - SINUS TACHYCARDIA LEFT VENTRICULAR HYPERTROPHY BORDERLINE T ABNORMALITIES, INFERIOR LEADS : Confirmed by: Billy Dai MD 08-Oct-2020 15:04:24
== END 2020-10-08 01:13 | disposition home or self-care (01) ==
LOC: ER 20:40
DX: I10 Essential (primary) hypertension (principal); R53.1 Weakness; E11.9 Type 2 diabetes mellitus without complications; Z90.49 Acquired absence of other specified parts of digestive tract
CPT/HCPCS: 36415; 80053; 83735; 84443; 85025; 93005; 93010; 99284

== ENCOUNTER 2020-10-09 07:47 | Emergency (ER) | payer MEDICAID ==
[2020-10-09 08:30] LABS: APPEARANCE,URINE CLEAR; BILIRUBIN,URINE NEGATIVE (NEGATIVE); COLOR,URINE YELLOW; GLUCOSE, URINE NEGATIVE (NEGATIVE); KETONES,URINE NEGATIVE (NEGATIVE); LEUKOCYTE ESTERASE,URINE NEGATIVE (NEGATIVE); NITRITE,URINE NEGATIVE (NEGATIVE); PROTEIN,URINE 30 mg/dL (NEGATIVE); URINE SPECIFIC GRAVITY 1.012; UROBILINOGEN,URINE NEGATIVE mg/dL (<2.0)
[2020-10-09] MEDS ORDERED: DIPHENHYDRAMINE HCL 50 MG/ML VIAL IV ONE (08:33)
[2020-10-09] MEDS ORDERED: NORMAL SALINE 1000 ML 1,000 ML IV ONE (08:33)
[2020-10-09] MEDS ORDERED: METOCLOPRAMIDE HCL INJ/PF 10 MG/2 ML SDV IV ONE (08:33)
--- NOTE | 2020-10-09 08:36 | ER Document Report ---
ED Headache - General Chief Complaint: Headache Stated Complaint: HEAD PRESSURE/MIGRAINE Time Seen by Provider: 10/09/20 08:13 Primary Care Provider: SMITA BARDALES MD [Primary Care Provider] - Follow up in 3-5 days Notes: Patient is a 35-year-old female who presents to the emergency department with a chief complaint of head pressure to her entire head. She woke up this morning and felt the pressure in her head. Also reports that she felt dizzy. Patient was started on hydrochlorothiazide and propranolol a few days ago. Patient has a history of papillary edema. She does state that there is some changes in her vision that started this morning. TRAVEL OUTSIDE OF THE [place] IN LAST 30 DAYS: No - Related Data Allergies/Adverse Reactions: hydrocodone Allergy (Verified 10/09/20 08:19) Hives macadamia nut oil Adverse Reaction (Verified 10/09/20 08:19) Home Medications: HCTZ. Propanolol Past Medical History - Social History Smoking Status: Never Smoker Chew tobacco use (# tins/day): No Frequency of alcohol use: None Drug Abuse: None Family History: Reviewed & Not Pertinent - Past Medical History Cardiac Medical History: Reports: Hx Hypertension Pulmonary Medical History: Reports: Hx Sleep Apnea Neurological Medical History: Reports: Hx Migraine. Denies: Hx Seizures Endocrine Medical History: Reports: Hx Diabetes Mellitus Type 2. Denies: Hx Hyperthyroidism, Hx Hypothyroidism Renal/ Medical History: Reports: Hx Ovarian Cysts. Denies: Hx Kidney Stones, Hx Peritoneal Dialysis, Hx Pelvic Inflammatory Disease Malignancy Medical History: Denies: Hx Breast Cancer, Hx Cervical Cancer, Hx Ovarian Cancer GI Medical History: Reports: Hx Gastroesophageal Reflux Disease. Denies: Hx Hiatal Hernia, Hx Ulcer Musculoskeletal Medical History: Denies Hx Fibromyalgia Traumatic Medical History: Denies: Hx Fractures Past Surgical History: Reports: Hx Section - x5, Hx Cholecystectomy. Denies: Hx Hysterectomy, Hx Pacemaker - Immunizations Hx Diphtheria, Pertussis, Tetanus Vaccination: Yes Review of Systems - Review of Systems Notes: REVIEW OF SYSTEMS: CONSTITUTIONAL : Denies recent illness. Denies recent unintentional weight loss. Denies fever, chills, or sweats. EENT: Denies eye, ear, throat, or mouth pain, discharge, or symptoms. Denies nasal or sinus congestion. CARDIOVASCULAR: Denies chest pain. RESPIRATORY: Denies shortness of breath, cough, congestion, difficulty breathing, or wheezing. GASTROINTESTINAL: Denies nausea, vomiting, and diarrhea. Denies abdominal pain. Denies constipation. GENITOURINARY: Denies difficulty urinating, burning, blood in urine, urgency or frequency. MUSCULOSKELETAL: Denies neck and back pain. Denies joint pain or swelling. SKIN: Denies rash, itchiness, or lesions HEMATOLOGIC : Denies easy bruising or bleeding. LYMPHATIC: Denies swollen, painful, enlarged glands. NEUROLOGICAL: Denies no numbness or tingling. Denies altered mental status. Denies alteration in speech. See HPI. PSYCHIATRIC: Denies stress, anxiety, alteration in sleep patterns, or depression. All other systems reviewed and negative. Physical Exam - Vital signs Vitals: Temp BP Pulse Ox 97.5 F 148/90 H 98 10/09/20 08:03 10/09/20 08:03 10/09/20 08:03 - Notes Notes: PHYSICAL EXAMINATION: GENERAL: Appears well, obese, no acute distress. HEAD: Normocephalic, atraumatic. EYES: PERRL, conjunctiva normal, all extraocular movements intact, sclera nonicteric ENT: Moist mucous membranes. NECK: Supple, no noticeable swelling, redness, rash. Normal range of motion. LUNGS: Equal breath sounds bilaterally and clear to auscultation. No wheezes rales or rhonchi. CARDIOVASCULAR: S1-S2, regular rate, regular rhythm. Radial pulses 2+, normal. ABDOMEN: Normoactive bowel sounds. Soft, nontender, no guarding, no rebound tenderness, and no masses palpated. EXTREMITIES: Normal strength and range of motion, no pitting or edema. No cyanosis. NEUROLOGICAL: Moves all extremities upon command. Strength 5/5 in all extremities. PSYCH: Normal mood, normal affect. SKIN: Warm, dry. No rash, lesions, ulcerations noted. Normal skin turgor. Course - Re-evaluation Re-evalutation: 10/09/20 10:38 Patient states that she feels better after receiving Reglan and Benadryl IV. Hematology is unremarkable. Chemistries show a slightly low sodium and chloride. She received IV fluids. Urinalysis is unremarkable, other than a small amount of blood. She states that she is at the end of her menstrual cycle. hCG is negative. Discussed follow-up with the patient. She is agreement with this plan. Follow-up precautions were given. Verbal discharge instructions were given to the patient. They verbalized understanding. They are stable for discharge. - Vital Signs Vital signs: Temp Pulse Resp BP Pulse Ox 97.5 F 92 147/77 H 100 10/09/20 08:03 10/09/20 10:03 10/09/20 10:03 10/09/20 09:56 - Laboratory Results Result Diagrams: 10/09/20 08:07 10/09/20 08:07 Laboratory Results Interpreted: 10/09/20 10/09/20 10/09/20 08:07 08:07 08:07 MCH 26.8 L RDW 14.1 H Sodium 133.3 L Chloride 93 L Glucose 141 H Urine Protein 30 H Urine Blood SMALL H Critical Laboratory Results Reviewed: No Critical Results - Radiology Results Critical Radiology Results Reviewed: No Critical Results - EKG Interpretation by Me Additional EKG results interpreted by me: 10/09/20 11:08 Sinus rhythm. Rate 83. CA 168; QRS 108; QT 380; QTc 447. No ST elevations or depressions noted. Improved heart rate and no acute change from previous EKG done on 10/07/2020. Discharge - Discharge Clinical Impression: Essential hypertension, Pressure in head, Dizziness Condition: Stable Disposition: HOME, SELF-CARE Additional Instructions: You were seen today in the emergency department for pressure in your head and dizziness. Your work-up showed that you were slightly dehydrated. Make sure you are drinking plenty of water. Take your medications as prescribed. Know that you are taking these medications will take a few weeks to get used to. Follow-up with your primary care provider. If you develop a similar pressure in your head, in the future I recommend that you immediately take 600 mg of ibuprofen and 50 mg of Benadryl and go to sleep as quickly as possible. This can often prevent your headache from becoming severe. Referrals: SIMTA BARDALES MD [Primary Care Provider] - Follow up in 3-5 days
[2020-10-09 08:40] LABS: ABSOLUTE EOSINOPHILS # (AUTO) 0.1 10^3/uL (0.0-0.6); ABSOLUTE LYMPHOCYTES (AUTO) 3.8 10^3/uL (0.5-4.7); ABSOLUTE MONOCYTES (AUTO) 0.5 10^3/uL (0.1-1.4); ABSOLUTE NEUT (AUTO) 5.1 10^3/uL (1.7-8.2); BASOPHILS % (AUTO) 0.4 % (0-2); EOSINOPHILS % (AUTO) 0.8 % (0-6); HEMATOCRIT 39.3 % (36.0-47.0); HEMOGLOBIN 12.9 g/dL (12.0-15.5); MEAN CORPUSCULAR HEMOGLOBIN 26.8 pg (27.0-33.4); MEAN CORPUSCULAR HGB CONC 32.7 g/dL (32.0-36.0); MEAN CORPUSCULAR VOLUME 82 fl (80-97); MONOCYTES % (AUTO) 5.6 % (3-13); PLATELET COUNT 426 10^3/uL (150-450); RED CELL DISTRIBUTION WIDTH 14.1 % (11.5-14.0); SEGMENTED NEUTROPHILS % (AUTO) 53.2 % (42-78); TOTAL CELLS COUNTED % (AUTO) 100 %; WHITE BLOOD COUNT 9.6 10^3/uL (4.0-10.5)
[2020-10-09 08:57] LABS: ALBUMIN 4.7 g/dL (3.5-5.0); ALKALINE PHOSPHATASE 70 U/L (38-126); ANION GAP 11 (5-19); ASPARTATE AMINO TRANSFERASE 28 U/L (14-36); BILIRUBIN,DIRECT 0.2 mg/dL (0.0-0.4); BILIRUBIN,TOTAL 0.4 mg/dL (0.2-1.3); BLOOD UREA NITROGEN 17 mg/dL (7-20); CALCIUM 10.1 mg/dL (8.4-10.2); CARBON DIOXIDE 29 mmol/L (22-30); CHLORIDE 93 mmol/L (98-107); GLUCOSE 141 mg/dL (75-110); POTASSIUM 4.1 mmol/L (3.6-5.0); TOTAL PROTEIN 7.6 g/dL (6.3-8.2)
--- NOTE | 2020-10-09 09:06 | RADIOLOGY REPORT (SQ) ---
EXAM DESCRIPTION: CT HEAD WITHOUT IMAGES COMPLETED DATE/TIME: 10/09/2020 8:50 am REASON FOR STUDY: LU; vision changes; hx of papillary edema COMPARISON: 12/26/2015 TECHNIQUE: Axial images acquired through the brain without intravenous contrast. Images reviewed wi th bone, brain and subdural windows. Additional sagittal and coronal reconstructions were generated. Images stored on PACS. All CT scanners at this facility use dose modulation, iterative reconstruction, and/or weight based d osing when appropriate to reduce radiation dose to as low as reasonably achievable (ALARA). [facility]: Dose Right [facility]: CareDose [facility]: Dose Right [facility]: Teradose 4D [facility]: Smart Qualtré RADIATION DOSE: CT Rad equipment meets quality standard of care and radiation dose reduction techniq ues were employed. CTDIvol: 53.2 mGy. DLP: 937 mGy-cm. mGy. LIMITATIONS: None. FINDINGS: VENTRICLES: Normal size and contour. CEREBRUM: No masses. No hemorrhage. No midline shift. No evidence for acute infarction. Normal gra y/white matter differentiation. No areas of low density in the white matter. CEREBELLUM: No masses. No hemorrhage. No alteration of density. No evidence for acute infarction. EXTRAAXIAL SPACES: No fluid collections. No masses. ORBITS AND GLOBE: No intra- or extraconal masses. Normal contour of globe without masses. Grossly n ormal contour and caliber of the optic nerves. CALVARIUM: No fracture. PARANASAL SINUSES: No fluid or mucosal thickening. SOFT TISSUES: No mass or hematoma. OTHER: No other significant finding. IMPRESSION: NORMAL BRAIN CT WITHOUT CONTRAST. EVIDENCE OF ACUTE STROKE: NO. COMMENT: Quality ID # [id number]: Final reports with documentation of one or more dose reduction techniques (e.g., Automated exposure control, adjustment of the mA and/or kV according to patient size, use of iterative reconstruction technique) TECHNICAL DOCUMENTATION: JOB ID: [id number] 2010 [employer]- All Rights Reserved Reading location - IP/workstation name: [email or web address]
[2020-10-09 11:40] VITALS: BP 140/83
--- NOTE | 2020-10-09 19:42 | EKG REPORT ---
SEVERITY:- ABNORMAL ECG - SINUS RHYTHM LEFT VENTRICULAR HYPERTROPHY WITH REPOLARIZATION ABNORMALLITIES BORDERLINE T ABNORMALITIES, INFERIOR LEADS : Confirmed by: Billy Dai MD 09-Oct-2020 19:41:44
== END 2020-10-09 11:39 | disposition home or self-care (01) ==
LOC: ER 07:47
DX: I10 Essential (primary) hypertension (principal); R42 Dizziness and giddiness; H53.9 Unspecified visual disturbance; E11.9 Type 2 diabetes mellitus without complications
CPT/HCPCS: 93005; 99285; 96361; 96374; 96375; 36415; 85025; 81025; 80053; 81001; 70450; 93010; J1200; J2765; J7030